=== PATIENT | male | born 1970 | race Two or more races ===

== ENCOUNTER 2017-10-30 10:37 | Inpatient (IN) ==
[2017-10-30] MEDS ORDERED: Aluminum/Magnesium/Simethacone Susp 30 ML UDC PO PRN (20:30)
[2017-10-31 10:30] LABS: Baso % (Auto) 0.5 % (0.0-2.0); Eos # (Auto) 0.2 th/mm3 (0.0-0.4); Eos % (Auto) 2.1 % (0.0-4.0); Hematocrit 41.8 % (39.0-51.0); Hemoglobin 14.5 gm/dL (13.0-17.0); Lymph # (Auto) 1.4 th/mm3 (1.0-4.8); Lymph % (Auto) 16.5 % (9.0-44.0); Mean Corpuscular HGB Conc 34.7 % (32.0-36.0); Mean Corpuscular Hemoglobin 32.5 pg (27.0-34.0); Mean Corpuscular Volume 93.7 fL (80.0-100.0); Mean Platelet Volume 7.5 fL (7.0-11.0); Mono # (Auto) 0.7 th/mm3 (0.0-0.9); Mono % (Auto) 8.6 % (0.0-8.0); Neut # (Auto) 6.2 th/mm3 (1.8-7.7); Neut % (Auto) 72.3 % (16.0-70.0); Platelet Count 306 th/mm3 (150-450); Red Blood Count 4.47 mil/mm3 (4.50-5.90); White Blood Count 8.5 th/mm3 (4.0-11.0)
[2017-10-31 11:01] LABS: Alanine Aminotransferase 11 U/L (12-78); Albumin 3.2 g/dL (3.4-5.0); Anion Gap 10 meq/L (5-15); Aspartate Aminotransferase 10 U/L (15-37); Blood Urea Nitrogen 5 mg/dL (7-18); Calcium 8.7 mg/dL (8.5-10.1); Chloride 106 meq/L (98-107); Cholesterol 156 mg/dL (120-200); Glomerular Filtration Rate Greater Than 89 mL/min (>89); Glucose,Random 99 mg/dL (74-106); Potassium 3.5 meq/L (3.5-5.1); Sodium 141 meq/L (136-145); Triglycerides 102 mg/dL (42-150)
[2017-10-31 11:10] LABS: Alkaline Phosphatase 91 U/L (45-117); HDL Cholesterol 50.3 mg/dL (40.0-60.0); LDL Cholesterol,Calculated 85 mg/dL (0-99); Total Protein 7.3 g/dL (6.4-8.2)
[2017-10-31 11:58] LABS: Hemoglobin A1c 4.8 % (4.3-6.0)
--- NOTE | 2017-10-31 12:30 | P.HPPSY ---
Provisional Diagnosis Admission Date: October 30, 2017 19:03 [place] I.: Unspecified psychosis, Catatonia, R/O schizophrenia, R/O bipolar disorder with catatonic features Competence Certification of Person's Competence To Provide Express and Informed Consent I have personally examined Rusty Haynes, a person being served at [facility] on, October 31, 2017 1211. Express and informed consent means consent voluntarily given in writing, by a competent person, after sufficient explanation and disclosure of the subject matter involved to enable the person to make a knowing and willful decision without any element of force, fraud, deceit, duress, or other form of constraint or coercion. This person is 18 years of age or older, is not now known to be incompetent to consent to treatment with a guardian advocate, and does not have a health care surrogate or proxy currently making medical treatment decisions. I have found this person to be one of the following: [] Competent to provide express and informed consent, as defined above, for voluntary admission to this facility and is competent to provide express and informed consent for treatment. He/she has the consistent capacity to make well reasoned, willful, and knowing decisions concerning his or her medical or mental health treatment. The person fully and consistently understands the purpose of the admission for examination/placement and is fully capable of personally exercising all rights assured [place] [x] Incompetent to provide express and informed consent to voluntary admission, and this is incompetent to provide express and informed consent to treatment. The person must be transferred to involuntary status and a petition for a guardian advocate filed with the Circuit Court. [] Refusing to provide express and informed consent to voluntary admission but is competent to provide express and informed consent for treatment. The person must be discharged or transferred to involuntary status. Form shall be completed within 24 hours of a person's arrival at the receiving facility and filed in the clinical record of each person: 1. Admitted on a voluntary basis 2. Permitted to provide express and informed consent to his/her own treatment 3. Allowed to transfer from involuntary to voluntary status 4. Prior to permitting a person to consent to his or her own treatment after having been previously found incompetent to consent to treatment. History of Present Illness Capacity: Lacks capacity History of Present Illness: The patient is a 47-year-old [place]iqu[place] man, [place]o-speaking, domiciled with his mother in the [place] area, first time at [facility], single, unemployed, with a reported psychiatric history of schizophrenia, multiple psychiatric admissions, known psychotropic regimen, no significant medical history, who was transferred to [place] from [facility] in [place] on the [place] act due to changes in behavior, increased agitation and altered mental status. Most of the information my assessment is based in the revision of the discharge summary from [facility]. Apparently, the patient was recently discharged from a psychiatric hospitalization in the [facility] and his medication were changed. There is no mention of medications and discharge summary. 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 Patient is also very sweaty. He was noted to be walking before in [facility]. Has not been interacting with staff, no answering questions, quite isolated. No agitation or aggressive behavior reported. The only questions of the patient responded to me was that he was from [place], he prefers [place], he does not know where he is, he is disoriented in time and place. Denies suicidal enemas ideation, denies visual and auditory hallucinations. PPHx Schizophrenia, multiple admissions, apparently he was just discharged from a lengthy hospitalization in a psychiatric hospital in the [facility], he denies suicidal attempts, with no psychotropic regimen. PPHx: No medical history Family psychiatric history: No at the moment Substance Hx: The patient denies, and he is negative and initial U tox Social Hx: The patient was born in [place], he lives in the [facility], single , employed, - Inpatient Certification I certify that the inpatient services were ordered in accordance with Medicare regulations governing the order. This includes certification that hospital inpatient services are reasonable and necessary and in the case of services not specified as inpatient-only under 42 CFR 419.22(n), that they are appropriately provided as inpatient services in accordance to with the 2-midnight benchmark under 43 CFR 412.3(e) I certify that inpatient psychiatric hospital services are medically necessary. Evaluation and treatment and/or diagnostic testing are expected to improve the patient's condition. The patient needs on a daily basis, active treatment furnished directly by or requiring the supervision of inpatient psychiatric facility personnel. Review of Systems Constitutional: Denies anorexia, Denies body ache(s), Denies chills, Denies daytime sleepiness, Denies excessive sweating, Denies fatigue, Denies fever(s), Denies headache(s), Denies increased appetite, Denies lack of energy, Denies malaise, Denies night sweats, Denies weakness, Denies weight gain, Denies weight loss, Denies other Ears, Nose, Mouth, and Throat: Denies abnormal hearing, Denies bleeding gums, Denies bad breath, Denies change in voice, Denies dental pain, Denies difficulty swallowing, Denies dizziness, Denies dry mouth, Denies ear discharge , Denies ear pain, Denies facial pain, Denies headache(s), Denies hearing loss, Denies hoarseness, Denies lip swelling, Denies nosebleed, Denies mouth lesions, Denies mouth pain, Denies nasal congestion, Denies nasal discharge, Denies nasal obstruction, Denies nasal trauma, Denies neck lump, Denies neck pain, Denies nose pain, Denies pain with swallowing, Denies poor balance, Denies post nasal drip, Denies ringing in the ears, Denies sinus pain, Denies sinus pressure , Denies sore throat, Denies throat swelling, Denies tongue swelling, Denies other Cardiovascular: Denies chest pain, Denies chest pain at rest, Denies chest pain with activity, Denies excessive sweating, Denies fainting, Denies fast heart rate, Denies foot swelling, Denies generalized swelling, Denies irregular heart rhythm, Denies leg pain with activity, Denies leg sores, Denies leg swelling, Denies lightheadedness, Denies radiating jaw, neck or arm pain, Denies rapid, pounding, or irregular heartbeat, Denies shortness of breath, Denies shortness of breath with activity, Denies shortness of breath when lying down, Denies shortness of breath causing sudden awakening, Denies slow heart rate, Denies other Respiratory: Denies change in phlegm color, Denies chest congestion, Denies cough, Denies coughing up blood, Denies excessive phlegm production, Denies pain on inspiration, Denies pain with cough, Denies shortness of breath, Denies shortness of breath with activity, Denies snoring, Denies stridor, Denies wheezing, Denies other Gastrointestinal: Denies abdominal pain, Denies belching, Denies black, tarry stools, Denies bloating, Denies bright, red blood in stools, Denies change in bowel habits, Denies constant urge to pass stool, Denies change in stools, Denies coffee ground vomit, Denies constipation, Denies cramping, Denies difficulty swallowing, Denies excessive passing of gas, Denies feeling full early, Denies heartburn, Denies incontinent of stools, Denies loose stools, Denies nausea, Denies pain with swallowing, Denies vomiting, Denies vomiting blood, Denies other Neurologic: Reports confusion, Reports weakness Comments: Waxy flexibility, bilateral upper extremity stiffness, flat affect, selective mutism, psychomotor retardation. PMFSH - History History Provided By: Patient, Medical Record - Tobacco History Second Hand Smoke Exposure: No Tobacco Use In Past 30 Days: No Smoking Status: Never smoker Tobacco Type: Cigarettes - Alcohol History How Often Do You Have a Drink Containing Alcohol: Never - Substance Use History Substance History: No History of Abuse - Travel History Recent Travel in the [place] Within the Last 8 Weeks: No Recent Travel Out of the Country Within the Last 8 Weeks: No - Immunization History Tetanus Immunization: >5 Years Hx Influenza Vaccine This Season: Yes Medications and Allergies Active Medications: Active Medications Acetaminophen (Tylenol) 650 mg PO Q4H PRN PRN Reason: Pain 1-5 or Temp >101F Al Hydrox/Mg Hydrox/Simethicone (Mag-Al Plus Susp Liq) 30 ml PO Q6H PRN PRN Reason: DYSPEPSIA Al Hydroxide/Mg Hydroxide (Milk Of Magnesia Liq) 30 ml PO DAILY PRN PRN Reason: CONSTIPATION Diphenhydramine HCl (Benadryl) 50 mg PO Q6H PRN PRN Reason: For mild anxiety and/or EPS Lorazepam (Ativan Inj) 2 mg IM Q4H PRN PRN Reason: SEIZURES Nicotine (Habitrol 21 Mg Patch.24 Hr) 1 patch T-DERMAL DAILY PRN PRN Reason: NICOTINE CRAVING Patch Removal (Remove Old Patch) 1 each T-DERMAL HS PRN PRN Reason: IF NICOTINE PATCH ON Allergies Allergy/AdvReac Type Severity Reaction Status Date / Time haloperidol [From Haldol] AdvReac Severe Difficulty Verified 10/31/17 06:17 Breathing Results - Labs CBC & Chem 7: 10/31/17 09:49 10/31/17 09:49 Labs: Laboratory Results - last 24 hr 10/31/17 10/31/17 09:49 09:49 WBC 8.5 RBC 4.47 L Hgb 14.5 Hct 41.8 MCV 93.7 MCH 32.5 MCHC 34.7 RDW 13.0 Plt Count 306 MPV 7.5 Neut % (Auto) 72.3 H Lymph % (Auto) 16.5 [place] % (Auto) 8.6 H Eos % (Auto) 2.1 Baso % (Auto) 0.5 Neut # (Auto) 6.2 Lymph # (Auto) 1.4 [place] # (Auto) 0.7 Eos # (Auto) 0.2 Baso # (Auto) 0.0 WBC Differential . Differential Comment Auto diff final Sodium 141 Potassium 3.5 Chloride 106 Carbon Dioxide 25.0 Anion Gap 10 BUN 5 L Creatinine 0.53 L Estimated GFR Greater than 89 Random Glucose 99 Calcium 8.7 Total Bilirubin 0.4 AST 10 L ALT 11 L Alkaline Phosphatase 91 Total Protein 7.3 Albumin 3.2 L Triglycerides 102 Cholesterol 156 LDL Cholesterol, Calc 85 HDL Cholesterol 50.3 Cholesterol/HDL Ratio 3.10 TSH 1.510 Exam Vital signs: Vital Signs 10/30/17 19:05 10/31/17 06:31 Temperature 98.8 F 98.4 F Pulse Rate 98 H 112 H Respiratory Rate 20 Blood Pressure 121/79 120/57 L Pulse Oximetry 98 Intake & Output 10/30/17 10/31/17 10/31/17 18:59 06:59 18:59 Weight 83.914 kg Other: Weight On Admission 83.914 kg Narrative: Patient has prominent psychomotor retardation, bilateral upper extremity stiffness, slow movements, waxy flexibility, walking and tiptoe, sweating - Constitutional moderate distress, diaphoretic - Routine HEENT Exam Head: Present: normocephalic Eye: Present: EOMI ENT: Present: mucous membranes moist Mental Status Examination Appearance: Appropriate Consciousness: Lethargic, Clouded Orientation: Person, Date/Time Speech: Slow, Other (Selective mutism) Language: Adequate Fund of Knowledge: Inadequate Attention and Concentration: Inadequate Memory: Impaired Mood: Sad Affect: Flat Thought Process & Associations: Other (Severe blocking thought) Thought Content: Bizarre thinking Hallucination Type: None Delusion Type: Paranoid Suicidal Ideation: No Suicidal Plan: No Suicidal Intention: No Homicidal Ideation: No Homicidal Plan: No Homicidal Intention: No Insight: Poor Judgment: Poor Assessment and Plan - Assessment (1) Catatonia Code(s): F06.1 - Catatonic disorder due to known physiological condition Status: Acute (2) Schizophrenia Code(s): F20.9 - Schizophrenia, unspecified Status: Acute - Plan Plan: Estimated LOS: [] days On my psychiatric evaluation today I find a patient that presents quite stiff, stuporous, psychomotor retarded, with prominent flat affect, selective mutism, delay speech, blocking thought, upper extremity bilateral stiffness, waxy flexibility, he has been reported being weakness walking and tiptoe which might suggest that the patient is acutely catatonic. I have order Ativan 2 mg IM and after 15 minute the patient has showed a significant improvement in this symptomatology, but he continues to be disorganized, cannot confused and paranoid which is congruent with a concomitant major psychotic process decompensation. However, we did not have enough information about this patient to complete the diagnosis at this moment. As per discharge summary from [facility] the patient has history of schizophrenia, multiple psychiatric hospitalizations, he was recently discharged from a lengthy hospitalization in the [facility], but there is no information about his current psychotropic regimen, mental status, and psychiatric history in general. Obviously, in this case a medical reason for current presentation is important to be explore, especially a potential NMS. I will start Ativan 1 mg p.o. every 2 hours. Try to continue to get collateral information from family members. No antipsychotics at this moment. Will consult medicine. Agree with consulting neurology. Will order CBC, CMP, urine test, TSH, T3, T4, CPK. Justification for Continued Inpatient Stay: Continue admission.
--- NOTE | 2017-10-31 12:44 | P.CONNEU ---
History of Present Illness Service: Neurology Primary Care Provider: No Primary Care Physician Chief Complaint: Seizure History of Present Illness: 47-year-old male admitted for psychiatric illness to the psych unit. Apparently was in [place] prior. Poor historian. No medical records available. Some questionable history of seizure. Was given Ativan for possible catatonia as he was mute and nurse states he has been more conversant since then. Review of Systems All other systems reviewed negative except as stated in HPI [facility] - History History Provided By: Patient, Medical Record - Medical History Medical History: Medical History (Last Updated 10/31/17 @ 13:27 by Kitty Escoto MD) Epilepsy - Tobacco History Second Hand Smoke Exposure: No Tobacco Use In Past 30 Days: No Smoking Status: Never smoker Tobacco Type: Cigarettes - Alcohol History How Often Do You Have a Drink Containing Alcohol: Never - Substance Use History Substance History: No History of Abuse - Travel History Recent Travel in the [facility] Within the Last 8 Weeks: No Recent Travel Out of the Country Within the Last 8 Weeks: No - Immunization History Tetanus Immunization: >5 Years Hx Influenza Vaccine This Season: Yes Medications and Allergies Active Medications: Active Medications Acetaminophen (Tylenol) 650 mg PO Q4H PRN PRN Reason: Pain 1-5 or Temp >101F Al Hydrox/Mg Hydrox/Simethicone (Mag-Al Plus Susp Liq) 30 ml PO Q6H PRN PRN Reason: DYSPEPSIA Al Hydroxide/Mg Hydroxide (Milk Of Magnesia Liq) 30 ml PO DAILY PRN PRN Reason: CONSTIPATION Diphenhydramine HCl (Benadryl) 50 mg PO Q6H PRN PRN Reason: For mild anxiety and/or EPS Lorazepam (Ativan Inj) 2 mg IM Q4H PRN PRN Reason: SEIZURES Lorazepam (Ativan) 1 mg PO Q8H DEBORAH Nicotine (Habitrol 21 Mg Patch.24 Hr) 1 patch T-DERMAL DAILY PRN PRN Reason: NICOTINE CRAVING Patch Removal (Remove Old Patch) 1 each T-DERMAL HS PRN PRN Reason: IF NICOTINE PATCH ON Allergies Allergy/AdvReac Type Severity Reaction Status Date / Time haloperidol [From Haldol] AdvReac Severe Difficulty Verified 10/31/17 06:17 Breathing Exam Vital signs: Vital Signs 10/30/17 19:05 10/31/17 06:31 Temperature 98.8 F 98.4 F Pulse Rate 98 H 112 H Respiratory Rate 20 Blood Pressure 121/79 120/57 L Pulse Oximetry 98 Intake & Output 10/30/17 10/31/17 10/31/17 18:59 06:59 18:59 Weight 83.914 kg Other: Weight On Admission 83.914 kg Narrative: Awake alert in a wheelchair being wheeled around by the patient's me of not conversant no obvious distress no facial asymmetry as blink to threat appears to move all limbs - Constitutional no acute distress - Routine HEENT Exam Head: Present: normocephalic Results - Labs CBC & Chem 7: 10/31/17 09:49 10/31/17 09:49 Labs: Laboratory Results - last 24 hr 10/31/17 10/31/17 09:49 09:49 WBC 8.5 RBC 4.47 L Hgb 14.5 Hct 41.8 MCV 93.7 MCH 32.5 MCHC 34.7 RDW 13.0 Plt Count 306 MPV 7.5 Neut % (Auto) 72.3 H Lymph % (Auto) 16.5 [place] % (Auto) 8.6 H Eos % (Auto) 2.1 Baso % (Auto) 0.5 Neut # (Auto) 6.2 Lymph # (Auto) 1.4 [place] # (Auto) 0.7 Eos # (Auto) 0.2 Baso # (Auto) 0.0 WBC Differential . Differential Comment Auto diff final Sodium 141 Potassium 3.5 Chloride 106 Carbon Dioxide 25.0 Anion Gap 10 BUN 5 L Creatinine 0.53 L Estimated GFR Greater than 89 Random Glucose 99 Calcium 8.7 Total Bilirubin 0.4 AST 10 L ALT 11 L Alkaline Phosphatase 91 Total Protein 7.3 Albumin 3.2 L Triglycerides 102 Cholesterol 156 LDL Cholesterol, Calc 85 HDL Cholesterol 50.3 Cholesterol/HDL Ratio 3.10 TSH 1.510 Review/Management - Diagnosis (1) Catatonia Code(s): F06.1 - Catatonic disorder due to known physiological condition Status: Acute Current Visit: Yes (2) Schizophrenia Code(s): F20.9 - Schizophrenia, unspecified Status: Acute Current Visit: Yes - Review/Management Plan: Vitals appear stable at present May have been in a catatonic state Additional medical history would be helpful Recommendations Follow-up EEG, imaging Follow-up labs
--- NOTE | 2017-10-31 13:49 | P.CONIM ---
History of Present Illness Service: Hospitalist Consult date: 10/31/17 Requesting Physician: Stanley Yusuf Reason for Consult: Tachycardia, stiffiness, r/o NMS Primary Care Provider: No Primary Care Physician History of Present Illness: 47 year old [place]ian male with reported history of epilepsy and schizophrenia admitted under [place] Act from [facility] for increased agitation and change in mental status. Patient is a poor historian but per his admission HPI, he recently had a lengthy psychiatric hospitalization in the [place] area and had been discharged but there is no mention of any medications on his discharge summary. On his initial presentation, the patient was noted to be "quite stuporous, oppositional, seems to be selectively mute, with prominent flat affect, psychomotor retarded, delay speech, blocking thought, inability to move, stiffness and waxy flexibility." He was also noted to be diaphoretic and tiptoe walking. The patient was administered Ativan IM with improvement. Hospitalist services consulted for evaluation of tachycardia, diaphoresis, stiffness, and to rule out neuroleptic malignant syndrome. Neurology has also been consulted. On my encounter with the patient, he is initially seen in the hallway talking on the telephone. When brought to his room he is calm and conversive though most of the time he speaks of his family in [place] and repeatedly states "I am not from here." He cannot tell me about his recent hospitalization but endorses some altercation with police enforcement yesterday as he complains of some tenderness in his wrists from the "handcuffs." He states he has a history of epilepsy for which he reports taking Trileptal but does not elaborate on any psychiatric history. He admits to having auditory hallucinations; denies visual hallucinations or suicidal ideations. He endorses a little bit of discomfort in his left chest. Denies palpitations or racing heart. Review of Systems All other systems reviewed negative except as stated in HPI PMFSH - History History Provided By: Patient, Medical Record - Medical History Medical History: Medical History (Last Updated 10/31/17 @ 13:27 by Kitty Escoto MD) Epilepsy - Tobacco History Second Hand Smoke Exposure: No Tobacco Use In Past 30 Days: No Smoking Status: Never smoker Tobacco Type: Cigarettes - Alcohol History How Often Do You Have a Drink Containing Alcohol: Never - Substance Use History Substance History: No History of Abuse - Travel History Recent Travel in the [place] Within the Last 8 Weeks: No Recent Travel Out of the Country Within the Last 8 Weeks: No - Immunization History Tetanus Immunization: >5 Years Hx Influenza Vaccine This Season: Yes Medications and Allergies Active Medications: Active Medications Acetaminophen (Tylenol) 650 mg PO Q4H PRN PRN Reason: Pain 1-5 or Temp >101F Al Hydrox/Mg Hydrox/Simethicone (Mag-Al Plus Susp Liq) 30 ml PO Q6H PRN PRN Reason: DYSPEPSIA Al Hydroxide/Mg Hydroxide (Milk Of Magnesia Liq) 30 ml PO DAILY PRN PRN Reason: CONSTIPATION Diphenhydramine HCl (Benadryl) 50 mg PO Q6H PRN PRN Reason: For mild anxiety and/or EPS Lorazepam (Ativan Inj) 2 mg IM Q4H PRN PRN Reason: SEIZURES Lorazepam (Ativan) 1 mg PO Q8H DEBORAH Nicotine (Habitrol 21 Mg Patch.24 Hr) 1 patch T-DERMAL DAILY PRN PRN Reason: NICOTINE CRAVING Patch Removal (Remove Old Patch) 1 each T-DERMAL HS PRN PRN Reason: IF NICOTINE PATCH ON Allergies Allergy/AdvReac Type Severity Reaction Status Date / Time haloperidol [From Haldol] AdvReac Severe Difficulty Verified 10/31/17 06:17 Breathing Exam Vital signs: Vital Signs 10/30/17 19:05 10/31/17 06:31 Temperature 98.8 F 98.4 F Pulse Rate 98 H 112 H Respiratory Rate 20 Blood Pressure 121/79 120/57 L Pulse Oximetry 98 Intake & Output 10/30/17 10/31/17 10/31/17 18:59 06:59 18:59 Weight 83.914 kg Other: Weight On Admission 83.914 kg Narrative: GENERAL: WN, WD, cooperative [place]ian male sitting up in chair in NAD. SKIN: Warm and dry. Not diaphoretic. HEENT: AT/NC. Pupils equal and round. MMM. NECK: Supple no tender LAD or JVD. HEART: Tachycardic with no appreciable murmurs. LUNGS: CTAB without wheezes or crackles. ABDOMEN: +BS, soft, NT, ND. EXTREMITIES: No LE edema. Post-surgical scar R anterior leg just distal to his knee and L upper calf. NEURO: Awake and alert. Oriented to person and time though after he answers that the year is 2017 he states "it could also be 2021." Does not know what city he's in or where he is. Moving all extremities. There is some stiffness and rigidity when I passively move his arms but it improves when I encourage him to relax. No tremors. Follows commands. Strength 4/5 bilaterally. No focal neurologic deficits. Results - Labs CBC & Chem 7: 10/31/17 09:49 10/31/17 09:49 Labs: Laboratory Results - last 24 hr 10/31/17 10/31/17 09:49 09:49 WBC 8.5 RBC 4.47 L Hgb 14.5 Hct 41.8 MCV 93.7 MCH 32.5 MCHC 34.7 RDW 13.0 Plt Count 306 MPV 7.5 Neut % (Auto) 72.3 H Lymph % (Auto) 16.5 Mathews % (Auto) 8.6 H Eos % (Auto) 2.1 Baso % (Auto) 0.5 Neut # (Auto) 6.2 Lymph # (Auto) 1.4 Mathews # (Auto) 0.7 Eos # (Auto) 0.2 Baso # (Auto) 0.0 WBC Differential . Differential Comment Auto diff final Sodium 141 Potassium 3.5 Chloride 106 Carbon Dioxide 25.0 Anion Gap 10 BUN 5 L Creatinine 0.53 L Estimated GFR Greater than 89 Random Glucose 99 Calcium 8.7 Total Bilirubin 0.4 AST 10 L ALT 11 L Alkaline Phosphatase 91 Total Protein 7.3 Albumin 3.2 L Triglycerides 102 Cholesterol 156 LDL Cholesterol, Calc 85 HDL Cholesterol 50.3 Cholesterol/HDL Ratio 3.10 TSH 1.510 Assessment and Plan - Assessment (1) Psychosis Code(s): F29 - Unspecified psychosis not due to a substance or known physiological condition Status: Acute (2) Tachycardia Code(s): R00.0 - Tachycardia, unspecified Status: Acute (3) Catatonia Code(s): F06.1 - Catatonic disorder due to known physiological condition Status: Acute - Plan Impression: 47 year old [place]ian male with history of seizures and schizophrenia admitted under [place] Act for agitation and change in mental status. Patient noted to be tachycardic, diaphoretic, and stiff with no information regarding his medications he has been taking. Hospitalist service consulted for further evaluation, specifically to rule out neuroleptic malignant syndrome. After receiving IM Ativan, he no longer appears to have the same catatonic picture as described by psychiatry. He is not significantly rigid or stiff now is he diaphoretic on my exam. He is afebrile and aside from tachycardia his vitals signs are stable. His CBC, CMP, and TSH are grossly normal. Differentials include malignant catatonia, NMS, serotonin syndrome, infection, withdrawal, overdose, etc. Unfortunately, we do not know what if any medications he has been taking. Plan: - Recommend trying to obtain records from recent hospitalization to see what medications he was taking - Agree with neuro consult; EEG and MRI ordered - Hold antipsychotics for now given concern for NMS or others as above - Ativan per psych to control catatonia - Check EKG, troponin, UDS, U/A, CK - Other labs ordered by neuro: ammonia, CRP, ESR, B12 - Monitor vitals - Monitor clinically Thank you for this consultation. Will continue to follow along.
[2017-10-31 14:45] LABS: Creatine Kinase 112 U/L (39-308)
[2017-10-31 14:52] LABS: C-Reactive Protein 0.52 mg/dL (0.00-0.30)
[2017-10-31] MEDS: LORazepam 1 MG Tablet PO SCH (21:18)
[2017-11-01] MEDS: LORazepam 1 MG Tablet PO SCH ×4 (09:04→20:44)
--- NOTE | 2017-11-01 10:45 | MR ---
EXAM DATE: 11/01/2017 10:33 AM EDT AGE/SEX: 47 years / Male INDICATIONS: Altered mental status. CLINICAL DATA: This is the patient's initial encounter. Patient reports that signs and symptoms have been present for 3 days and indicates a pain score of 0/10. MEDICAL/SURGICAL HISTORY: . Epilepsy. None. COMPARISON: No prior exams available for comparison. TECHNIQUE: Multiplanar, multisequence examination of the brain was performed without contrast. FINDINGS: Exam is degraded by motion. Cerebrum: The ventricles are normal for age. No evidence of midline shift, mass lesion, hemorrhage or acute infarction. No extraaxial fluid collections are seen. The pituitary gland and suprasellar cistern are normal in configuration. White Matter: No significant signal abnormalities are seen in the white matter. Posterior Fossa: The cerebellum and brainstem are intact. The 4th ventricle is midline. The cerebel lopontine angle is unremarkable. The cerebellar tonsils are normal in position. Diffusion Imaging: No focal areas of restricted diffusion are seen. No evidence of acute infarction . Extracranial: The visualized portions of the orbits and paranasal sinuses are unremarkable. CONCLUSION: 1. Motion degraded exam. 2. No definitive acute abnormality. Specifically, no evidence for acute infarction or hemorrhage. Electronically signed by: Ehsan Bernard MD 11/01/2017 10:44 AM EDT
--- NOTE | 2017-11-01 13:10 | P.PNPSY ---
Subjective Remarks: Patient was seen and case discussed with nursing. Patient is less catatonic today. He is able to hold a conversation. He is more talkative in Estonian. He does remained flat with thought blocking. He is able to eat by himself. During our interview patient expressed suicidal ideation. Patient says that if he could find a way to hurt himself here he would do so today. Stressors include being poor and feeling helpless. Patient admits to "some voices." Mental Status Examination Appearance: Appropriate Consciousness: Lethargic, Clouded Orientation: Person, Place, Date/Time Speech: Slow, Other (Selective mutism) Language: Adequate Fund of Knowledge: Inadequate Attention and Concentration: Inadequate Memory: Impaired Mood: Sad Affect: Flat Thought Process & Associations: Other (Severe blocking thought) Thought Content: Bizarre thinking Hallucination Type: None Delusion Type: Paranoid Suicidal Ideation: Yes Suicidal Plan: No Suicidal Intention: Yes Homicidal Ideation: No Homicidal Plan: No Homicidal Intention: No Insight: Poor Judgment: Poor Assessment and Plan - Assessment (1) Catatonia Code(s): F06.1 - Catatonic disorder due to known physiological condition Status: Acute (2) Schizophrenia Code(s): F20.9 - Schizophrenia, unspecified Status: Acute - Plan Plan: We will order one-to-one Justification for Continued Inpatient Stay: Patient would decompensate in a less restrictive setting
--- NOTE | 2017-11-01 13:14 | ECG ---
Date Performed: 10/31/2017 Time Performed: 14:51:19 PTAGE: 47 years EKG: Sinus rhythm NORMAL ECG NO PREVIOUS TRACING DOCTOR: Delroy Dwyer Interpretating Date/Time 11/01/2017 13:10:36
--- NOTE | 2017-11-01 17:19 | P.PN ---
Subjective Interval history: follow up for AMS, agitation, tachycardia: pt. back from EEG, per nursing he has been talking a little more. Sometimes he speaks in Romansh. Spoke to him in both languages but I get no response initially, as I walk away he said a few words that were difficult to understand and he would not speak again. Not following command. HR improved, 90s. No diaphoresis. He walks on tiptoes, gait is unsteady per nursing report. No rigidity noted. Has received Ativan. Per review of medical records: pt. was on Tegretol, Benadryl, melatonin, Risperdal, Depakote, benztropine, simvastatin, folic acid Depakote level 45.9 10/29 Physical Exam Vital signs: Vital Signs 10/31/17 18:51 11/01/17 06:53 Temperature 98.7 F 98.0 F Pulse Rate 101 H 94 H Respiratory Rate 17 18 Blood Pressure 107/56 L 102/57 L Pulse Oximetry 99 96 Narrative: GENERAL: 47-year-old male, currently sitting in chair, flat affect. No distress noted. SKIN: Warm and dry. HEAD: Atraumatic. Normocephalic. EYES: Pupils equal and round. No scleral icterus. No injection or drainage. ENT: No nasal bleeding or discharge. Mucous membranes pink and moist. NECK: Trachea midline. No JVD. CARDIOVASCULAR: Regular rate and rhythm. RESPIRATORY: No accessory muscle use. Clear to auscultation. Breath sounds equal bilaterally. GASTROINTESTINAL: Abdomen soft, non-tender, nondistended. Hepatic and splenic margins not palpable. MUSCULOSKELETAL: Extremities without clubbing, cyanosis, or edema. No obvious deformities. NEUROLOGICAL: Patient is awake, has flat affect, not verbalizing much. Difficult to ascertain orientation. Not following commands. PSYCHIATRIC: Flat affect, nonverbal. Results - Labs CBC & Chem 7: 10/31/17 09:49 10/31/17 09:49 - Imaging Impressions Head MRI 11/01/17 00:00 CONCLUSION: 1. Motion degraded exam. 2. No definitive acute abnormality. Specifically, no evidence for acute infarction or hemorrhage. Assessment and Plan - Assessment (1) Psychosis Code(s): F29 - Unspecified psychosis not due to a substance or known physiological condition Status: Acute (2) Tachycardia Code(s): R00.0 - Tachycardia, unspecified Status: Acute (3) Catatonia Code(s): F06.1 - Catatonic disorder due to known physiological condition Status: Acute (4) Seizure disorder Code(s): G40.909 - Epilepsy, unspecified, not intractable, without status epilepticus Status: Acute - Plan 47 year old [place] male with history of seizures and schizophrenia admitted under Kebede Act for agitation and change in mental status. Patient noted to be tachycardic, diaphoretic, and stiff. AMS with agitation r/o NMS, serotonin syndrome, ? withdrawal. Hx of psychosis Catatonia Labs normal. Limited records are available for review. Medication list noted. Pt. was receiving PT for mobility and unstable gait. Heart improved, no fever, no diaphoresis. -continue with Ativan -Neurology input appreciated -MRI brain results noted, no acute findings -EEG done, results pending -Medication list is reviewed, pt. was on Tegretol, Benadryl, melatonin, Risperdal, Depakote, benztropine, simvastatin, folic acid, Pepcid, Tylenol, Thiamine Depakote level 45.9 on 10/29 -at this time, continue to hold medications. -labs reviewed, CRP and ammonia mildly elevated. -trop and creat kinase okay Seizure disorder, pt. on Tegretol, level 45.9 on 10/29 -will hold for now -EEG done, results pending -seizure precautions Hyperlipidemia -resume home meds Home medications reviewed, some initiated. Will continue to hold antipsychotics Plan of care d/w RAIZA.
[2017-11-01] MEDS: Nystatin 100,000 UNITS/GM Powder 15 GM Bottle TOPICAL SCH (18:51)
--- NOTE | 2017-11-01 21:47 | MG ---
cc: Francesco Melton MD ELECTROENCEPHALOGRAM RECORD NUMBER: [id number] DESCRIPTION: Well-formed 8-9 Hz alpha activity, 20-40 microvolts with low-amplitude beta in the frontal channels, followed by generalized slowing with transition into drowsy state, followed by stage I sleep with vertex waves. Spindles with transition to stage II. Occasional episodes of wakefulness. Limited driving with photic stimulation. Single-lead EKG showing sinus rhythm. INTERPRETATION: Normal awake and sleep electroencephalogram. Clinical correlation. MD ANNIKA Harden/jadyn , 09:11 PM , 09:15 PM
[2017-11-02] MEDS: LORazepam 1 MG Tablet PO SCH (06:02)
[2017-11-02] MEDS: Famotidine 20 MG Tablet PO SCH (08:41)
[2017-11-02] MEDS: Folic Acid 1 MG Tablet PO SCH (08:41)
[2017-11-02] MEDS: Nystatin 100,000 UNITS/GM Powder 15 GM Bottle TOPICAL SCH ×4 (08:46→17:53)
--- NOTE | 2017-11-02 12:41 | P.PNPSY ---
Subjective Remarks: The patient was seen today along with nurse in charge. The patient continues to be quite catatonic, with marked psychomotor retardation, with mutism and delay speech, oppositional behavior, stiff and flat affect. The patient has not been moving in the unit, mostly sat down, eating less than 30% of his food. He was described by weekend psychiatrist as talking and expressing suicidal ideation, but today he barely answer my questions. I have reviewed neurology and internal medicine recommendations. Mental Status Examination Appearance: Appropriate Consciousness: Lethargic, Clouded Orientation: Person, Place, Date/Time Speech: Slow, Other (Selective mutism) Language: Adequate Fund of Knowledge: Inadequate Attention and Concentration: Inadequate Memory: Impaired Mood: Sad Affect: Flat Thought Process & Associations: Other (Severe blocking thought) Thought Content: Bizarre thinking Hallucination Type: None Delusion Type: Paranoid Suicidal Ideation: Yes Suicidal Plan: No Suicidal Intention: Yes Homicidal Ideation: No Homicidal Plan: No Homicidal Intention: No Insight: Poor Judgment: Poor Assessment and Plan - Assessment (1) Catatonia Code(s): F06.1 - Catatonic disorder due to known physiological condition Status: Acute (2) Schizophrenia Code(s): F20.9 - Schizophrenia, unspecified Status: Acute - Plan Plan: The patient remains catatonic. With prominent flat affect, psychomotor retardation, mutism, oppositional behavior, eating less than 30% of his food. Will change the Ativan 1 mg p.o. to Ativan 2 mg IM every 8 hours. If patient does not show improvement with Ativan, the patient may be a candidate for the Med[facility] unit. Collateral information is still pending. Justification for Continued Inpatient Stay: Acuity catatonic, psychotic, needs psychiatric hospitalization for stabilization.
--- NOTE | 2017-11-02 17:14 | P.PN ---
Subjective Interval history: follow up for AMS, agitation, tachycardia: pt was moved to [address], was given Ativan IM. This morning, having difficulty swallowing pill. At this time, he is sitting up in chair, talking, slow to respond but knows he is in a hospital, name of president. Thinks his parents are in the room down the hallway. Denies any pain when asked. Feels weak. Still with flat affect, not as stiff as he was yesterday. Following simple commands. Physical Exam Vital signs: Vital Signs 11/01/17 17:05 11/02/17 06:19 Temperature 98.6 F Pulse Rate 92 H 93 H Respiratory Rate 18 16 Blood Pressure 123/75 101/63 Pulse Oximetry 97 100 Intake & Output 11/01/17 11/02/17 11/02/17 18:59 06:59 18:59 Weight 80 kg Narrative: GENERAL: 47-year-old male, currently sitting in chair, flat affect. No distress noted. SKIN: Warm and dry. HEAD: Atraumatic. Normocephalic. EYES: Pupils equal and round. No scleral icterus. No injection or drainage. ENT: No nasal bleeding or discharge. Mucous membranes pink and moist. NECK: Trachea midline. No JVD. CARDIOVASCULAR: Regular rate and rhythm. RESPIRATORY: No accessory muscle use. Clear to auscultation. Breath sounds equal bilaterally. GASTROINTESTINAL: Abdomen soft, non-tender, nondistended. Hepatic and splenic margins not palpable. MUSCULOSKELETAL: Extremities without clubbing, cyanosis, or edema. No obvious deformities. NEUROLOGICAL: awake, slow to respond, speech clear. Oriented to place, knows name of president. PSYCHIATRIC: Flat affect, nonverbal. Results - Labs CBC & Chem 7: 10/31/17 09:49 10/31/17 09:49 Assessment and Plan - Assessment (1) Psychosis Code(s): F29 - Unspecified psychosis not due to a substance or known physiological condition Status: Acute (2) Tachycardia Code(s): R00.0 - Tachycardia, unspecified Status: Acute (3) Catatonia Code(s): F06.1 - Catatonic disorder due to known physiological condition Status: Acute (4) Seizure disorder Code(s): G40.909 - Epilepsy, unspecified, not intractable, without status epilepticus Status: Acute - Plan 47 year old [place]ian male with history of seizures and schizophrenia admitted under K[place] Act for agitation and change in mental status. Patient noted to be tachycardic, diaphoretic, and stiff. AMS with agitation r/o NMS, serotonin syndrome, ? withdrawal. Hx of psychosis Catatonia Labs normal. Limited records are available for review. Medication list noted. Pt. was receiving PT for mobility and unstable gait. Heart improved, no fever, no diaphoresis. -continue with Ativan, seems to be responding well. -Neurology input appreciated -MRI brain results noted, no acute findings -EEG done no acute findings. -Medication list is reviewed, pt. was on Tegretol, Benadryl, melatonin, Risperdal, Depakote, benztropine, simvastatin, folic acid, Pepcid, Tylenol, Thiamine Depakote level 45.9 on 10/29 -at this time, continue to hold medications. -labs reviewed, CRP and ammonia mildly elevated. -trop and creat kinase okay Seizure disorder, pt. on Tegretol, level 45.9 on 10/29 -will hold for now -EEG okay -seizure precautions Hyperlipidemia -continue home meds Right arm rash -continue Nystatin Noted with trouble swallowing -will obtain swallow eval. Home medications reviewed, some initiated. Will continue to hold antipsychotics Plan of care d/w RAIZA.
[2017-11-03] MEDS: Nystatin 100,000 UNITS/GM Powder 15 GM Bottle TOPICAL SCH ×3 (09:29→18:12)
[2017-11-03] MEDS: Folic Acid 1 MG Tablet PO SCH ×2 (09:29→09:49)
[2017-11-03] MEDS: Famotidine 20 MG Tablet PO SCH ×2 (09:31→09:50)
--- NOTE | 2017-11-03 12:07 | P.PN ---
Subjective Interval history: Follow-up on patient with possible history of seizure disorder, altered mental status, increased agitation. Patient seen and examined. Patient is very talkative today but remains a very poor historian. He is fixated on returning home to [place]. He repeatedly states he believes he needs to go back to his country. He believes staying here is making him worse. He believes that his last seizure was 3 days ago. He states he has been on Tegretol since he was a child for epilepsy. He tells me he believes in [place]. Discussed with nursing staff, patient ate about 75% of breakfast but not much of lunch. Physical Exam Vital signs: Vital Signs 11/02/17 17:41 11/03/17 05:48 Temperature 98.1 F 98.5 F Pulse Rate 86 Respiratory Rate 16 Blood Pressure 100/57 L Pulse Oximetry 98 Intake & Output 11/02/17 11/03/17 11/03/17 18:59 06:59 18:59 Intake Total 240 / 240 240 / 240 Balance 240 / 240 240 / 240 Intake: Oral 240 / 240 240 / 240 Narrative: GENERAL: This is a thin 47-year-old male patient, no acute distress. Awake and alert. SKIN: Warm and dry. No generalized rash. HEENT: Atraumatic. Normocephalic. Pupils equal and round. No scleral icterus. No injection or drainage. No nasal bleeding or discharge. Mucous membranes pink and moist. NECK: Trachea midline. CARDIOVASCULAR: Regular rate and rhythm. RESPIRATORY: No accessory muscle use. Clear to auscultation. Breath sounds equal bilaterally. GASTROINTESTINAL: Abdomen soft, non-tender, nondistended. +BS x 4 quads. MUSCULOSKELETAL: Extremities without clubbing, cyanosis, or edema. No obvious deformities. NEUROLOGICAL: Awake and alert. Talkative. Cranial nerves II through XII grossly intact. Able to move all extremities spontaneously. No focal neurologic finding. Normal speech. PSYCHIATRIC: Calm and cooperative. Judgment and insight poor. Results - Labs CBC & Chem 7: 10/31/17 09:49 10/31/17 09:49 - Imaging ITS Impressions Head MRI 11/01/17 00:00 CONCLUSION: 1. Motion degraded exam. 2. No definitive acute abnormality. Specifically, no evidence for acute infarction or hemorrhage. 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 Patient noted to be tachycardic, diaphoretic, and stiff. Schizophrenia Catatonia [facility] acted from [facility] for increased agitation/altered mental status -Management per psychiatric team AMS with agitation r/o NMS, serotonin syndrome, ?withdrawal. Hx of psychosis Medication list is reviewed, pt. was on Tegretol, Benadryl, melatonin, Risperdal , Depakote, benztropine, simvastatin, folic acid, Pepcid, Tylenol, Thiamine Depakote level 45.9 on 10/29 MRI brain, no acute finding -Neurology input appreciated Seizure disorder, pt. on Tegretol, level 45.9 on 10/29 EEG, no seizure activity -seizure precautions Hyperlipidemia -continue home meds Right arm rash -continue Nystatin Noted with trouble swallowing Poor po intake -Swallow evaluation completed, per ST recommendations regular diet with thin liquids -Consult dietitian for calorie count. Will add supplements 3 times a day. Discussed Condition With: patient, nursing staff
--- NOTE | 2017-11-03 12:59 | P.PNPSY ---
Subjective Remarks: Patient was seen today for psychiatric reevaluation. Case was widely discussed with nursing charge. The patient is found very catatonic, in bed, very stiff, with pronounced mutism, flat affect, waxy flexibility. In spite of multiple efforts to communicate with the patient, the patient verbally respond. As per nurse in charge, the patient has moments of being better right after getting IV Ativan, but he usually goes back to catatonic state minutes later. This morning the patient ate 75% of his food. Yesterday, the patient expressed that he wanted to and commit suicide. No one has been able to communicate with family members so far. Mental Status Examination Appearance: Appropriate Consciousness: Lethargic, Clouded Orientation: Person, Place, Date/Time Speech: Slow, Other (Selective mutism) Language: Adequate Fund of Knowledge: Inadequate Attention and Concentration: Inadequate Memory: Impaired Mood: Sad Affect: Flat Thought Process & Associations: Other (Severe blocking thought) Thought Content: Bizarre thinking Hallucination Type: None Delusion Type: Paranoid Suicidal Ideation: Yes Suicidal Plan: No Suicidal Intention: Yes Homicidal Ideation: No Homicidal Plan: No Homicidal Intention: No Insight: Poor Judgment: Poor Assessment and Plan - Assessment (1) 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 Very poor response to psychotropics so far. We do not have any collateral information, we need to continue trying to get collateral information from his family in order to get the complete psychiatric history of the patient. I will continue Ativan 2 mg every 8 hours IM. I will try Ambien stat now and depending on the response this medication can be prescribed twice a day for his catatonia. Justification for Continued Inpatient Stay: Patient continues to be catatonic/psychotic
--- NOTE | 2017-11-03 15:01 | P.DIET ---
Nutritional Evaluation Type of nutrition evaluation: initial Nutrition consult regarding: Diet Evaluation (MDC for Calorie Counting) Subjective Subjective Comments: Pt was seen in his room. He would look towards me, but would not answer any questions. Would not shake his head yes or no to questions either. Calorie count envelope was given to RN in nurses station. Objective - Diagnosis Psychosis - Objective % IBW: 96 (IKA=213#) Body Weight Used for Calculations: Actual (80kg) Energy Needs - Lower Range (kCal/kg): 25 Energy Needs - Upper Range (kCal/kg): 30 Lower Limit kCal/kg (kCals): 2,000 Upper Limit kCal/kg (kCals): 2,400 Lower Limit Protein Factor (Grams per Kg): 1.0 Upper Limit Protein Factor (Grams per Kg): 1.2 Lower Protein Needs (Protein): 80 Upper Protein Needs (Protein): 96 Fluid Factor (ml/kg): 30 Estimated Fluid Needs (ml): 2,400 Dietitian Reviewed in Medical Record: Current diet, Curent medications, Intake & Output, Labs, Medical history Diet Order: Regular Objective Comments: Meds: Vitamin B12, Folic Acid, Vitamin B1 No BM recorded Assessment Assessment: Pt admitted for psychosis. He did not participate in assessment when I visited him in his room. Per review of EMR, pt has been eating approximately 50-100% of his meals. A few days had recorded 0-25% PO intake. Calorie count envelope was given to RN inside nurses station. I will add some Ensure to pt's tray and monitor acceptance. Calorie count will run 11/04-11/06. RD following. Recommendations: 1. Calorie count running 11/04-11/06. 2. Ensure TID. 3. Regular diet appropriate. Dietitian to Monitor: Lab values, Supplement acceptance, Intake & Output, Diet tolerance, Weight change, PO Intake, Medical course
[2017-11-04] MEDS: Folic Acid 1 MG Tablet PO SCH (08:23)
[2017-11-04] MEDS: Famotidine 20 MG Tablet PO SCH (08:23)
[2017-11-04] MEDS: Nystatin 100,000 UNITS/GM Powder 15 GM Bottle TOPICAL SCH ×3 (08:23→18:42)
--- NOTE | 2017-11-04 11:56 | P.PN ---
Subjective Interval history: Follow-up on patient with catatonia, epilepsy. Patient seen and examined. Patient is very concerned that he is not been restarted on his Tegretol. He states he just wants to get back on his regular medications and then focus on going home. He denies any acute medical complaints. Discussed with RN, not eating well, only 25% of meals but did perform self grooming tasks on his own. Physical Exam Vital signs: Vital Signs 11/03/17 17:03 11/04/17 06:00 Temperature 98.7 F 99 F Pulse Rate 92 H 89 Respiratory Rate 18 16 Blood Pressure 114/69 139/56 L Pulse Oximetry 98 94 L Intake & Output 11/03/17 11/04/17 11/04/17 18:59 06:59 18:59 Intake Total 840 / 840 505 / 505 240 / 240 Balance 840 / 840 505 / 505 240 / 240 Intake: Oral 840 / 840 505 / 505 240 / 240 Other: # Voids 3 1 Narrative: GENERAL: This is a thin 47-year-old male patient, no acute distress. Awake and alert. Seated in dayroom. SKIN: Warm and dry. No generalized rash. HEENT: Atraumatic. Normocephalic. Pupils equal and round. No scleral icterus. No injection or drainage. No nasal bleeding or discharge. Mucous membranes pink and moist. NECK: Trachea midline. CARDIOVASCULAR: Regular rate and rhythm. RESPIRATORY: No accessory muscle use. Clear to auscultation. Breath sounds equal bilaterally. Poor respiratory effort. GASTROINTESTINAL: Abdomen soft, non-tender, nondistended. +BS x 4 quads. MUSCULOSKELETAL: Extremities without clubbing, cyanosis, or edema. No obvious deformities. NEUROLOGICAL: Awake and alert. Cranial nerves II through XII grossly intact. Able to move all extremities spontaneously. No focal neurologic finding. Normal speech. PSYCHIATRIC: Calm and cooperative. Judgment and insight poor. Results - Labs CBC & Chem 7: 10/31/17 09:49 10/31/17 09:49 - Imaging ITS Impressions Head MRI 11/01/17 00:00 CONCLUSION: 1. Motion degraded exam. 2. No definitive acute abnormality. Specifically, no evidence for acute infarction or hemorrhage. Assessment and Plan - Assessment (1) Psychosis Code(s): F29 - Unspecified psychosis not due to a substance or known physiological condition Status: Acute (2) Tachycardia Code(s): R00.0 - Tachycardia, unspecified Status: Acute (3) Catatonia Code(s): F06.1 - Catatonic disorder due to known physiological condition Status: Acute (4) Seizure disorder Code(s): G40.909 - Epilepsy, unspecified, not intractable, without status epilepticus Status: Acute - Plan 47 year old [place] male with history of seizures and schizophrenia admitted under [facility] for agitation and change in mental status. Patient noted to be tachycardic, diaphoretic, and stiff. Schizophrenia Catatonia [facility] from [facility] for increased agitation/altered mental status -Management per psychiatric team AMS with agitation r/o NMS, serotonin syndrome, ?withdrawal. Hx of psychosis Medication list is reviewed, pt. was on Tegretol, Benadryl, melatonin, Risperdal , Depakote, benztropine, simvastatin, folic acid, Pepcid, Tylenol, Thiamine Depakote level 45.9 on 10/29 MRI brain, no acute finding -Neurology input appreciated. Seizure disorder, pt. on Tegretol, level 45.9 on 10/29 EEG, no seizure activity -seizure precautions. No seizure activity reported. -Discussed with willie Finn to resume Tegretol 200mg po TID Hyperlipidemia -continue home meds Right arm rash -continue Nystatin Noted with trouble swallowing Poor po intake -Swallow evaluation completed, per ST recommendations regular diet with thin liquids -Dietitian following for calorie count 11/04 to 11/06. Ensure TID. DVT prophylaxis -patient is ambulatory Discussed Condition With: patient, nursing staff, Dr. Melton, Dr. Johnson
[2017-11-04] MEDS: carBAMazepine 200 MG Tablet PO SCH ×2 (12:31→18:30)
--- NOTE | 2017-11-04 12:41 | P.PNPSY ---
Subjective Remarks: The patient was seen today for psychiatric reevaluation. Case was widely discussed with nursing staff and also with hospitalist involved. Collateral information from mother was obtained today. On my psychiatric evaluation I find a patient that is doing much better. He is eating his breakfast, completely verbal, answering all my questions appropriately. He is really concerned about his medications for seizures. Concern about his mental and physical condition. At times becomes disorganized, tearful, labile, but denies suicidal enemas ideation, denies visual and auditory hallucinations. Patient continues to show stiffness, delay speech, blocking thought, flat affect and difficulty ambulating. He denies suicidal enemas ideation, he denies visual and auditory hallucinations. The patient has been compliant with medications, no significant side As per mother: Melissa Haynes [phone] The patient is a 47-year-old [place]ian man domiciled with his parents in [place], he has been 2 times, has no kids, unemployed at the moment, but used to work [employer] for a long time, he has no previous psychiatric history, he has no previous psychiatric hospitalizations, he has no previous suicidal attempts, he has no family psychiatric history, he does have a significant medical history of seizures, he has been in Tegretol 600 mg 3 times daily for over 20 years, who in the last 2 months, after stopping his medications for seizures having a seizure episode, has become psychotic and catatonic. Her mother reports that about 2 months ago the patient was ready to go to [place] to visit his girlfriend, the trip was planned for a , but the Thursday before he had an episode of seizures and had to be hospitalized. Later on the mother learned that the patient has stopped his Tegretol as a suggestion of his girlfriend. After the seizure episode the patient became altered, was hospitalized in the hospital developed pneumonia, delirium and since then the patient has not been functioning. She clarifies that previous that seizure episode, the patient was a very friendly person, hard-working man, there is marked and never had any mental issues. She clarifies that the patient never has been diagnosed with schizophrenia. She also clarifies that this patient has never used any illegal drugs and alcohol. Mental Status Examination Appearance: Appropriate Consciousness: Alert, Clouded Orientation: Person, Place, Date/Time Speech: Hesitant, Other (Selective mutism) Language: Adequate Fund of Knowledge: Inadequate Attention and Concentration: Inadequate Memory: Impaired Mood: Sad Affect: Flat Thought Process & Associations: Other (Severe blocking thought) Thought Content: Bizarre thinking Hallucination Type: None Delusion Type: Paranoid Suicidal Ideation: No Suicidal Plan: No Suicidal Intention: No Homicidal Ideation: No Homicidal Plan: No Homicidal Intention: No Insight: Fair Judgment: Impulsive Assessment and Plan - Assessment (1) Catatonia Code(s): F06.1 - Catatonic disorder due to known physiological condition Status: Acute (2) Unspecified psychosis Code(s): F29 - Unspecified psychosis not due to a substance or known physiological condition Status: Acute - Plan Plan: On psychiatric evaluation today the patient shows a significant improvement in his catatonic symptoms and mental status. Patient is verbal, more communicative , able to answer most of my questions. He continues to present stiffness, difficulty ambulating, mask faces, delay speech, a little bit of oppositional behavior, disorganized thought process, labile mood. As per a long conversation with his mother, the patient has never been diagnosed with schizophrenia, he does not have any psychiatric history, no previous psychiatric hospitalizations or suicide attempts. Current episode of psychosis and catatonia developed after a seizure episode about 2 months ago. I will increase the Ativan to 2 mg every 6 hours and would change it to p.o, I will start Abilify 5 mg daily for psychosis, this has been discussed with the mother. I also have discussed with hospitalist the competing of restarting carbamazepine and reconsulting neurology to help now that we have more information about the patient. Current presentation seems more now like a post ictal psychosis, and possibly a carbamazepine withdrawal induced catatonia. Schizophrenia is now lower in the differential, still possible. Justification for Continued Inpatient Stay: Continue psychiatric admission given the level of psychosis and catatonia.
[2017-11-04] MEDS: ARIPiprazole 5 MG Tablet PO SCH (13:32)
[2017-11-05] MEDS: Folic Acid 1 MG Tablet PO SCH (08:46)
[2017-11-05] MEDS: Famotidine 20 MG Tablet PO SCH (08:46)
[2017-11-05] MEDS: Nystatin 100,000 UNITS/GM Powder 15 GM Bottle TOPICAL SCH ×3 (08:47→18:07)
[2017-11-05] MEDS: ARIPiprazole 5 MG Tablet PO SCH (08:47)
[2017-11-05] MEDS: carBAMazepine 200 MG Tablet PO SCH ×3 (08:47→18:06)
--- NOTE | 2017-11-05 12:46 | P.PNPSY ---
Subjective Remarks: The patient was seen today for psychiatric reevaluation, he was also seen in [facility], the patient has a brighter affect, is more communicative, with full facial expressions, but seems to be quite emotionally this regulated, also paranoid and internally preoccupied. He continues to have stiffness, waxy flexibility, all his catatonia is much better now. He is oriented 3, fully compliant with medications, eating 100% of his food. Mental Status Examination Appearance: Appropriate Consciousness: Alert, Clouded Orientation: Person, Place, Date/Time Speech: Hesitant, Other (Selective mutism) Language: Adequate Fund of Knowledge: Inadequate Attention and Concentration: Inadequate Memory: Impaired Mood: Sad Affect: Flat Thought Process & Associations: Other (Severe blocking thought) Thought Content: Bizarre thinking Hallucination Type: None Delusion Type: Paranoid Suicidal Ideation: No Suicidal Plan: No Suicidal Intention: No Homicidal Ideation: No Homicidal Plan: No Homicidal Intention: No Insight: Fair Judgment: Impulsive Assessment and Plan - Assessment (1) Catatonia Code(s): F06.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 Continue current psychotropic regimen. Justification for Continued Inpatient Stay: Patient needs to continue psychiatric hospitalization for stabilization
--- NOTE | 2017-11-05 13:35 | P.PN ---
Subjective Interval history: Follow-up on patient with catatonia, epilepsy. Patient seen and examined. Patient looks a little better today. More communicative. He is relieved he has been resumed on his Tegretol medication. Patient tells me that he fell out of the chair earlier today and is now having left knee and right ankle pain. He denies hitting his head or any loss of consciousness. He denies any other injury. Discussed with nursing staff, patient is eating a little more. Also he is moving better. Physical Exam Vital signs: Vital Signs 11/04/17 18:42 11/05/17 05:38 11/05/17 08:00 Temperature 98.6 F 98.2 F Pulse Rate 98 H 115 H Respiratory Rate 18 18 Blood Pressure 165/93 H 118/72 125/66 Pulse Oximetry 93 L 98 94 L 11/05/17 09:14 11/05/17 10:10 11/05/17 11:25 Temperature 98.0 F 98.0 F 98.0 F Pulse Rate 102 H 105 H 105 H Respiratory Rate 18 18 16 Blood Pressure 120/78 118/65 113/55 L Pulse Oximetry 95 95 95 Intake & Output 11/04/17 11/05/17 11/05/17 18:59 06:59 18:59 Intake Total 240 / 240 460 / 460 Balance 240 / 240 460 / 460 Intake: Oral 240 / 240 360 / 360 Oral Supplement 100 / 100 Other: # Voids 1 # Bowel Movements 0 Narrative: GENERAL: This is a thin 47-year-old male patient, no acute distress. Awake and alert. Sitting in chair in dayroom. SKIN: Warm and dry. No generalized rash. HEENT: Atraumatic. Normocephalic. Pupils equal and round. No scleral icterus. No injection or drainage. No nasal bleeding or discharge. Mucous membranes pink and moist. NECK: Trachea midline. CARDIOVASCULAR: Regular rate and rhythm. RESPIRATORY: No accessory muscle use. Clear to auscultation. Breath sounds equal bilaterally. GASTROINTESTINAL: Abdomen soft, non-tender, nondistended. +BS x 4 quads. MUSCULOSKELETAL: Extremities without clubbing, cyanosis, or edema. No obvious deformities. Positive for stiffness and waxy flexibility. Tenderness to palpation lateral aspect left knee. Difficult to assess range of motion secondary to stiffness. Mild tenderness noted to palpation medial aspect of the right ankle. No obvious swelling in either joint. NEUROLOGICAL: Awake and alert. Able to move all extremities spontaneously. No focal neurologic finding appreciated. PSYCHIATRIC: Calm and cooperative. Judgment and insight poor. Results - Labs CBC & Chem 7: 10/31/17 09:49 10/31/17 09:49 Assessment and Plan - Assessment (1) Psychosis Code(s): F29 - Unspecified psychosis not due to a substance or known physiological condition Status: Acute (2) Tachycardia Code(s): R00.0 - Tachycardia, unspecified Status: Acute (3) Catatonia Code(s): F06.1 - Catatonic disorder due to known physiological condition Status: Acute (4) Seizure disorder Code(s): G40.909 - Epilepsy, unspecified, not intractable, without status epilepticus Status: Acute - Plan 47 year old [place] male with history of seizures admitted under [facility] for agitation and change in mental status. Patient noted to be tachycardic, diaphoretic, and stiff. Catatonia with associated waxy flexibility and stiffness Psychosis [facility] from [facility] for increased agitation/altered mental status Lengthy discussion with Dr. Johnson, patient with no previous history of schizophrenia or any other psychiatric illness. Catatonia developed after patient suffered a seizure secondary to discontinuing his Tegretol medication at the urging of his girlfriend. -Management per psychiatric team -Continue with PT Seizure disorder, with recent seizure activity secondary to patient discontinuing his Tegretol medication EEG, no seizure activity -seizure precautions -Discussed with Dr. Melton who recommends resuming patient on his regular Tegretol dose 200 mg p.o. 3 times daily and having patient follow up with his own neurologist following discharge Hyperlipidemia -continue home meds Right arm rash -continue Nystatin Noted with trouble swallowing Poor po intake -Swallow evaluation completed, per ST recommendations regular diet with thin liquids -Dietitian following for calorie count. Continue Ensure 3 times daily. Left knee and right ankle pain s/p fall No head injury, no loss of consciousness No obvious deformity on examination -We will obtain x-rays of the left knee and right ankle for further evaluation DVT prophylaxis -Patient is ambulatory Discussed Condition With: Patient, nursing staff, Dr. Johnson
--- NOTE | 2017-11-05 14:06 | XR ---
EXAM DATE: 11/05/2017 1:58 PM EDT AGE/SEX: 47 years / Male INDICATIONS: fell today, joint pain CLINICAL DATA: This is the patient's initial encounter. Patient reports that signs and symptoms have been present for 1 day and indicates a pain score of 8/10. MEDICAL/SURGICAL HISTORY: . epilepsy None. COMPARISON: No prior exams available for comparison. FINDINGS: Bony structures are intact and in normal alignment. Joints are intact without dislocation or signifi cant arthropathy. Osseous density is normal. Soft tissues are unremarkable. No radiopaque foreign bodies seen. No evidence of a joint effusion. CONCLUSION: Unremarkable exam. Electronically signed by: Jerod Lui MD 11/05/2017 2:05 PM EDT
--- NOTE | 2017-11-05 14:06 | XR ---
EXAM DATE: 11/05/2017 1:56 PM EDT AGE/SEX: 47 years / Male INDICATIONS: Fell today. CLINICAL DATA: This is the patient's initial encounter. Patient reports that signs and symptoms have been present for 1 day and indicates a pain score of 7/10. MEDICAL/SURGICAL HISTORY: . epilepsy None. COMPARISON: No prior exams available for comparison. FINDINGS: Bony structures are intact and in normal alignment. Joints are intact without dislocation or signifi cant arthropathy. Osseous density is normal. Soft tissues are unremarkable. No radiopaque foreign bodies seen. CONCLUSION: Unremarkable exam. Electronically signed by: Jerod Lui MD 11/05/2017 2:05 PM EDT
--- NOTE | 2017-11-06 08:37 | P.PNPSY ---
Subjective Remarks: The patient was seen today for psychiatric reevaluation. Case was widely discussed with nursing charge. The patient is definitely more communicative, engaging better in a conversation, more logical, more coherent and relevant. However, the patient continues to be very labile, having problems modulating his emotions. He is very concerned about his medical condition, as some level catastrophic, tearful, stated that he is not going to get better and every his life. At some point he also shows some paranoia, internal preoccupation, very concerned about safety of other patients. He denies suicidal and homicidal ideation, he denies visual and auditory hallucinations. The patient is oriented in place, partially oriented in times. I also continue to show symptoms of catatonia especially stiffness, blocking thought, delay speech, difficulty walking. The patient has been compliant medications, no significant side effects reported so far. Review of Systems Psychiatric: Reports depression, Reports hopelessness, Reports other (catatonia) Mental Status Examination Appearance: Appropriate Consciousness: Alert, Clouded Orientation: Person, Place Speech: Hesitant, Other (Selective mutism) Language: Adequate Fund of Knowledge: Inadequate Attention and Concentration: Inadequate Memory: Impaired Mood: Sad Affect: Flat Thought Process & Associations: Other ( blocking thought) Thought Content: Bizarre thinking Hallucination Type: None Delusion Type: Bizarre, Paranoid Suicidal Ideation: No Suicidal Plan: No Suicidal Intention: No Homicidal Ideation: No Homicidal Plan: No Homicidal Intention: No Insight: Fair Judgment: Impulsive Assessment and Plan - Assessment (1) Catatonia Code(s): F06.1 - Catatonic disorder due to known physiological condition Status: Acute (2) Unspecified psychosis Code(s): F29 - Unspecified psychosis not due to a substance or known physiological condition Status: Acute (3) Major depressive disorder Code(s): F32.9 - Major depressive disorder, single episode, unspecified Status : Acute - Plan Plan: Seems to be improving slowly, but still stiff, psychomotor retarded, with prominent slow speech and thought process, flat affect. Also have some autonomic instability, persistent tachycardia, sweating and low fever picks. At the same time episodically confused, emotionally labile and incontinent/ dysregulated. endorses depression, hopelessness, helplessness, catastrophic thinking. Will increase Ativan to 2 mg q/4 for catatonia Will order CBC, CMP, CPK, THH, T3, T4 rule out NMS vs malignant catatonia Will start Prozac 10 to help with depression Will increase Abilify to 10 for psychotic symptom Add Namenda 5 mg bid to decrease glutamatergic activity and help catatonia Justification for Continued Inpatient Stay: Continue psychiatric admission for stabilization and safety. (3) Major depressive disorder Qualifiers: Major depression recurrence: single episode
[2017-11-06] MEDS: Folic Acid 1 MG Tablet PO SCH (08:39)
[2017-11-06] MEDS: ARIPiprazole 5 MG Tablet PO SCH (08:39)
[2017-11-06] MEDS: carBAMazepine 200 MG Tablet PO SCH ×3 (08:39→17:07)
[2017-11-06] MEDS: Famotidine 20 MG Tablet PO SCH (08:40)
[2017-11-06] MEDS: Nystatin 100,000 UNITS/GM Powder 15 GM Bottle TOPICAL SCH ×3 (08:41→17:07)
[2017-11-06 11:46] LABS: Hemoglobin 14.2 gm/dL (13.0-17.0); Mean Corpuscular HGB Conc 35.4 % (32.0-36.0); Mean Corpuscular Hemoglobin 32.2 pg (27.0-34.0); Mean Platelet Volume 7.8 fL (7.0-11.0); Platelet Count 325 th/mm3 (150-450); Red Cell Distribution Width 12.9 % (11.6-17.2); White Blood Count 8.9 th/mm3 (4.0-11.0)
[2017-11-06 11:49] LABS: Albumin 3.5 g/dL (3.4-5.0); Anion Gap 7 meq/L (5-15); Aspartate Aminotransferase 14 U/L (15-37); Blood Urea Nitrogen 5 mg/dL (7-18); Calcium 8.8 mg/dL (8.5-10.1); Carbon Dioxide 26.8 meq/L (21.0-32.0); Chloride 105 meq/L (98-107); Glomerular Filtration Rate Greater Than 89 mL/min (>89); Glucose,Random 92 mg/dL (74-106); Potassium 3.9 meq/L (3.5-5.1); Sodium 139 meq/L (136-145)
[2017-11-06] MEDS: Acetaminophen 325 MG Tablet PO PRN (11:50)
[2017-11-06 11:58] LABS: Alanine Aminotransferase 27 U/L (12-78); Alkaline Phosphatase 86 U/L (45-117); Free T4 (Free Thyroxine) 1.09 ng/dL (0.76-1.46); Total Protein 7.2 g/dL (6.4-8.2); Triiodothyronine (T3) Free 2.92 pg/mL (2.18-3.98)
[2017-11-06 12:01] LABS: Creatine Kinase 90 U/L (39-308)
--- NOTE | 2017-11-06 13:24 | P.DIET ---
Nutritional Evaluation Type of nutrition evaluation: follow-up Nutrition consult regarding: Diet Evaluation (MDC for Calorie Counting) Nutrition screening: [facility] [place] Screening comments: MDC for Calorie Count Subjective Subjective Comments: 75% for breakfast and 25% for lunch today. Objective - Diagnosis Psychosis - Objective % IBW: 96 (CPT=204#) Body Weight Used for Calculations: Actual (80kg) Energy Needs - Lower Range (kCal/kg): 25 Energy Needs - Upper Range (kCal/kg): 30 Lower Limit kCal/kg (kCals): 2,000 Upper Limit kCal/kg (kCals): 2,400 Lower Limit Protein Factor (Grams per Kg): 1.0 Upper Limit Protein Factor (Grams per Kg): 1.2 Lower Protein Needs (Protein): 80 Upper Protein Needs (Protein): 96 Fluid Factor (ml/kg): 30 Estimated Fluid Needs (ml): 2,400 Dietitian Reviewed in Medical Record: Current diet, Curent medications, Intake & Output, Labs, Medical history Diet Order: Regular Objective Comments: PMH Includes: Epilepsy, Catatonic DO A1C 4.8 Meds Include: Vitamin B12, Folic Acid, Vitamin B1, Namenda, Ativan, Abilify, Prozac, Pravachol Feeding - Current PO Supplement Current Supplement: Ensure Original Current Frequency of Supplement: Three times a day Current kCals Provided by Supplement: 250 Current Protein Provided by Supplement: 9 - kCal Count Day 1 kCal Intake: 935 Day 1 Protein Intake: 31 kCal Comments: No meal slips collected/documented for Day#2 or Day#3 Assessment Assessment: MDC for Calorie Count INCOMPLETE. 72-hour Calorie Count w/2-meal slips collected /documented. Plan to restart Calorie Count today, 11/06 through 11/08 w/ Nutrition Recs to Follow 11/09. Continue Ensure TID. Labs reviewed. Recommendations: 1. MDC for Calorie Count INCOMPLETE 2. Plan to restart Calorie Count today, 11/06 through 11/08 w/Nutrition Recs to Follow 11/09 3. Continue Ensure TID Dietitian to Monitor: Lab values, Supplement acceptance, Intake & Output, Diet tolerance, Weight change, PO Intake, Medical course
--- NOTE | 2017-11-06 14:42 | P.PN ---
Subjective Interval history: Follow-up on patient with catatonia, epilepsy. Patient seen and examined. Patient is complaining of mid thoracic spine pain since he suffered a fall in the unit several days ago. Denies any weakness, numbness or tingling in bilateral lower extremities. He denies any bowel or bladder dysfunction. Physical Exam Vital signs: Vital Signs 11/05/17 15:16 11/05/17 17:23 11/05/17 20:00 Temperature 97.8 F 98.6 F 98.5 F Pulse Rate 105 H 95 H 99 H Respiratory Rate 18 18 Blood Pressure 122/63 116/71 114/57 L Pulse Oximetry 97 96 11/06/17 05:49 Temperature 97.8 F Pulse Rate 105 H Respiratory Rate 18 Blood Pressure 129/72 Pulse Oximetry 99 Narrative: GENERAL: This is a thin 47-year-old male patient, no acute distress. Awake and alert. Ambulating on his tiptoes in the dayroom. SKIN: Warm and dry. No generalized rash. HEENT: Atraumatic. Normocephalic. Pupils equal and round. No scleral icterus. No injection or drainage. No nasal bleeding or discharge. Mucous membranes pink and moist. NECK: Trachea midline. CARDIOVASCULAR: Regular rate and rhythm. RESPIRATORY: No accessory muscle use. Clear to auscultation. Breath sounds equal bilaterally. GASTROINTESTINAL: Abdomen soft, non-tender, nondistended. +BS x 4 quads. MUSCULOSKELETAL: Extremities without clubbing, cyanosis, or edema. No obvious deformities. Positive for stiffness and waxy flexibility. Tenderness to palpation lateral aspect left knee. Difficult to assess range of motion secondary to stiffness. Mild tenderness noted to palpation medial aspect of the right ankle. No obvious swelling in either joint. +tenderness to palpation mid thoracic spine over spinous process at approximately T11 NEUROLOGICAL: Awake and alert. Able to move all extremities spontaneously. No focal neurologic finding appreciated. PSYCHIATRIC: Calm and cooperative. Judgment and insight poor. Results - Labs CBC & Chem 7: 11/06/17 11:07 11/06/17 11:07 Laboratory Results - last 24 hr 11/06/17 11/06/17 11:07 11:07 WBC 8.9 RBC 4.40 L Hgb 14.2 Hct 40.0 MCV 91.0 MCH 32.2 MCHC 35.4 RDW 12.9 Plt Count 325 MPV 7.8 Sodium 139 Potassium 3.9 Chloride 105 Carbon Dioxide 26.8 Anion Gap 7 BUN 5 L Creatinine 0.62 Estimated GFR Greater than 89 Random Glucose 92 Calcium 8.8 Total Bilirubin 0.3 AST 14 L ALT 27 Alkaline Phosphatase 86 Total Creatine Kinase 90 Total Protein 7.2 Albumin 3.5 TSH 1.150 Free T4 1.09 Free T3 2.92 - Imaging ITS Impressions Head MRI 11/01/17 00:00 CONCLUSION: 1. Motion degraded exam. 2. No definitive acute abnormality. Specifically, no evidence for acute infarction or hemorrhage. Ankle X-Ray 11/05/17 00:00 CONCLUSION: Unremarkable exam. Knee X-Ray 11/05/17 00:00 CONCLUSION: Unremarkable exam. Assessment and Plan - Assessment (1) Psychosis Code(s): F29 - Unspecified psychosis not due to a substance or known physiological condition Status: Acute (2) Tachycardia Code(s): R00.0 - Tachycardia, unspecified Status: Acute (3) Catatonia Code(s): F06.1 - Catatonic disorder due to known physiological condition Status: Acute (4) Seizure disorder Code(s): G40.909 - Epilepsy, unspecified, not intractable, without status epilepticus Status: Acute - Plan 47 year old Latvian male with history of seizures admitted under Kebede Act for agitation and change in mental status. Patient noted to be tachycardic, diaphoretic, and stiff. Catatonia with associated waxy flexibility and stiffness Psychosis Kebede acted from [facility] for increased agitation/altered mental status Lengthy discussion with Dr. Johnson, patient with no previous history of schizophrenia or any other psychiatric illness. Catatonia developed after patient suffered a seizure secondary to discontinuing his Tegretol medication at the urging of his girlfriend. -Management per psychiatric team -Continue with PT Seizure disorder, with recent seizure activity secondary to patient discontinuing his Tegretol medication EEG, no seizure activity -seizure precautions -Discussed with Dr. Melton who recommends resuming patient on his regular Tegretol dose 200 mg p.o. 3 times daily and having patient follow up with his own neurologist following discharge Hyperlipidemia -continue home meds Right arm rash -continue Nystatin Noted with trouble swallowing Poor po intake -Swallow evaluation completed, per ST recommendations regular diet with thin liquids -Dietitian following for calorie count. Continue Ensure 3 times daily. Left knee and right ankle pain s/p fall No head injury, no loss of consciousness No obvious deformity on examination -Imaging of left knee and right ankle reviewed, no acute fracture noted Thoracic spine pain s/p fall -We will obtain x-ray of the thoracic spine DVT prophylaxis -Patient is ambulatory Discussed Condition With: patient, nursing staff
[2017-11-06] MEDS: FLUoxetine 10 MG Capsule PO SCH (17:07)
--- NOTE | 2017-11-06 18:17 | XR ---
EXAM DATE: 11/06/2017 6:11 PM EDT AGE/SEX: 47 years / Male INDICATIONS: Back pain after fall today. CLINICAL DATA: This is the patient's initial encounter. Patient reports that signs and symptoms have been present for 1 day and indicates a pain score of 7/10. MEDICAL/SURGICAL HISTORY: . Epilepsy. None. COMPARISON: No prior exams available for comparison. FINDINGS: The vertebral bodies are in normal alignment without evidence of compression deformity. Mild spurs a re seen in the lower thoracic spine Bone density is normal for age. Soft tissues are grossly intact. CONCLUSION: Mild spurs at the lower thoracic spine. Electronically signed by: Stewart Escobedo MD 11/06/2017 6:16 PM EDT
[2017-11-07] MEDS: Folic Acid 1 MG Tablet PO SCH (08:38)
[2017-11-07] MEDS: carBAMazepine 200 MG Tablet PO SCH ×3 (08:38→16:59)
[2017-11-07] MEDS: Famotidine 20 MG Tablet PO SCH (08:38)
[2017-11-07] MEDS: Nystatin 100,000 UNITS/GM Powder 15 GM Bottle TOPICAL SCH ×3 (08:39→17:03)
--- NOTE | 2017-11-07 09:36 | XR ---
EXAM DATE: 11/07/2017 9:34 AM EDT AGE/SEX: 47 years / Male INDICATIONS: Shortness of breath and fever. CLINICAL DATA: This is the patient's subsequent encounter. Patient reports that signs and symptoms h ave been present for 3 days and indicates a pain score of 0/10. MEDICAL/SURGICAL HISTORY: None. None. COMPARISON: No prior exams available for comparison. FINDINGS: A single AP view of the chest demonstrates the lungs to be symmetrically aerated without evidence of mass, infiltrate or effusion. The cardiomediastinal contours are unremarkable. Osseous structures a re intact. CONCLUSION: Negative examination. Electronically signed by: Isra Corey MD 11/07/2017 9:34 AM EDT
[2017-11-07] MEDS: FLUoxetine 10 MG Capsule PO SCH (09:41)
[2017-11-07] MEDS: ARIPiprazole 5 MG Tablet PO SCH (09:41)
[2017-11-07 10:35] LABS: Baso % (Auto) 0.5 % (0.0-2.0); Eos # (Auto) 0.1 th/mm3 (0.0-0.4); Eos % (Auto) 1.7 % (0.0-4.0); Hematocrit 40.8 % (39.0-51.0); Hemoglobin 14.2 gm/dL (13.0-17.0); Lymph # (Auto) 1.7 th/mm3 (1.0-4.8); Lymph % (Auto) 22.2 % (9.0-44.0); Mean Corpuscular HGB Conc 34.9 % (32.0-36.0); Mean Corpuscular Hemoglobin 32.4 pg (27.0-34.0); Mean Corpuscular Volume 92.8 fL (80.0-100.0); Mono # (Auto) 0.7 th/mm3 (0.0-0.9); Mono % (Auto) 9.8 % (0.0-8.0); Neut % (Auto) 65.8 % (16.0-70.0); Platelet Count 288 th/mm3 (150-450); Red Blood Count 4.39 mil/mm3 (4.50-5.90); Red Cell Distribution Width 13.2 % (11.6-17.2); White Blood Count 7.6 th/mm3 (4.0-11.0)
[2017-11-07 10:58] LABS: Creatine Kinase 76 U/L (39-308)
--- NOTE | 2017-11-07 11:32 | P.PN ---
Subjective Interval history: Follow-up on patient with catatonia, epilepsy. Patient seen and examined. Contacted by nursing staff earlier today prior to rounding on patient due to patient having complaints of shortness of breath and appearing diaphoretic. Patient encountered in the day room sitting in Rachell chair. Patient appears comfortable. He is not diaphoretic. He has no complaints of chest pain or shortness of breath. He denies any nausea, vomiting or abdominal pain. He states he does not have any back pain today. VSS. He is afebrile. Physical Exam Vital signs: Vital Signs 11/06/17 18:39 11/07/17 06:11 11/07/17 08:45 Temperature 98.3 F 97.9 F 99 F Pulse Rate 108 H 90 112 H Respiratory Rate 18 18 16 Blood Pressure 112/56 L 105/52 L 119/74 Pulse Oximetry 95 95 96 Intake & Output 11/06/17 11/07/17 11/07/17 18:59 06:59 18:59 Intake Total 120 / 120 Balance 120 / 120 Intake: Oral 120 / 120 Narrative: GENERAL: This is a thin 47-year-old male patient, no acute distress. Awake and alert. Sitting in [place] in the dayroom. SKIN: Warm and dry. No generalized rash. HEENT: Atraumatic. Normocephalic. Pupils equal and round. No scleral icterus. No injection or drainage. No nasal bleeding or discharge. Mucous membranes pink and moist. NECK: Trachea midline. CARDIOVASCULAR: Regular rate and rhythm. RESPIRATORY: No accessory muscle use. Clear to auscultation. Breath sounds equal bilaterally. GASTROINTESTINAL: Abdomen soft, non-tender, nondistended. +BS x 4 quads. MUSCULOSKELETAL: Extremities without clubbing, cyanosis, or edema. No obvious deformities. Positive for stiffness and waxy flexibility. NEUROLOGICAL: Awake and alert. Able to move all extremities spontaneously. No focal neurologic finding appreciated. PSYCHIATRIC: Calm and cooperative. Judgment and insight poor. Results - Labs CBC & Chem 7: 11/07/17 09:00 11/06/17 11:07 Laboratory Results - last 24 hr 11/06/17 11/06/17 11/07/17 11:07 11:07 08:41 WBC 8.9 RBC 4.40 L Hgb 14.2 Hct 40.0 MCV 91.0 MCH 32.2 MCHC 35.4 RDW 12.9 Plt Count 325 MPV 7.8 Neut % (Auto) Lymph % (Auto) [place] % (Auto) Eos % (Auto) Baso % (Auto) Neut # (Auto) Lymph # (Auto) [place] # (Auto) Eos # (Auto) Baso # (Auto) WBC Differential Differential Comment D-Dimer Quant (PE/DVT) Sodium 139 Potassium 3.9 Chloride 105 Carbon Dioxide 26.8 Anion Gap 7 BUN 5 L Creatinine 0.62 Estimated GFR Greater than 89 POC Glucose 107 Random Glucose 92 Calcium 8.8 Total Bilirubin 0.3 AST 14 L ALT 27 Alkaline Phosphatase 86 Total Creatine Kinase 90 Troponin I Total Protein 7.2 Albumin 3.5 TSH 1.150 Free T4 1.09 Free T3 2.92 11/07/17 11/07/17 11/07/17 09:00 09:00 09:00 WBC 7.6 RBC 4.39 L Hgb 14.2 Hct 40.8 MCV 92.8 MCH 32.4 MCHC 34.9 RDW 13.2 Plt Count 288 MPV 8.0 Neut % (Auto) 65.8 Lymph % (Auto) 22.2 [place] % (Auto) 9.8 H Eos % (Auto) 1.7 Baso % (Auto) 0.5 Neut # (Auto) 5.0 Lymph # (Auto) 1.7 [place] # (Auto) 0.7 Eos # (Auto) 0.1 Baso # (Auto) 0.0 WBC Differential . Differential Comment Auto diff final D-Dimer Quant (PE/DVT) 0.39 Sodium Potassium Chloride Carbon Dioxide Anion Gap BUN Creatinine Estimated GFR POC Glucose Random Glucose Calcium Total Bilirubin AST ALT Alkaline Phosphatase Total Creatine Kinase 76 Troponin I Less than 0.02 L Total Protein Albumin TSH Free T4 Free T3 - Imaging Impressions Thoracic Spine X-Ray 11/06/17 00:00 CONCLUSION: Mild spurs at the lower thoracic spine. Chest X-Ray 11/07/17 00:00 CONCLUSION: Negative examination. Assessment and Plan - Assessment (1) Psychosis Code(s): F29 - Unspecified psychosis not due to a substance or known physiological condition Status: Acute (2) Tachycardia Code(s): R00.0 - Tachycardia, unspecified Status: Acute (3) Catatonia Code(s): F06.1 - Catatonic disorder due to known physiological condition Status: Acute (4) Seizure disorder Code(s): G40.909 - Epilepsy, unspecified, not intractable, without status epilepticus Status: Acute - Plan 47 year old Danish male with history of seizures admitted under Delio Act for agitation and change in mental status. Patient noted to be tachycardic, diaphoretic, and stiff. 11/07 patient complaining of shortness of breath and appearing diaphoretic per nursing staff. Blood sugar 107. Chest x-ray unremarkable. Troponin less than 0.02. Stat CBC unremarkable. Chemistry panel and EKG pending. Catatonia with associated waxy flexibility and stiffness Psychosis Delio acted from [facility] for increased agitation/altered mental status Lengthy discussion with Dr. Johnson, patient with no previous history of schizophrenia or any other psychiatric illness. Catatonia developed after patient suffered a seizure secondary to discontinuing his Tegretol medication at the urging of his girlfriend. -Management per psychiatric team -Continue with PT Seizure disorder, with recent seizure activity secondary to patient discontinuing his Tegretol medication EEG, no seizure activity -seizure precautions -Discussed with Dr. Melton who recommends resuming patient on his regular Tegretol dose 200 mg p.o. 3 times daily and having patient follow up with his own neurologist following discharge Hyperlipidemia -continue home meds Right arm rash -continue Nystatin Noted with trouble swallowing Poor po intake -Swallow evaluation completed, per ST recommendations regular diet with thin liquids -Dietitian following for calorie count. Continue Ensure 3 times daily. Left knee and right ankle pain s/p fall No head injury, no loss of consciousness No obvious deformity on examination -Imaging of left knee and right ankle reviewed, no acute fracture noted Thoracic spine pain s/p fall -Imaging thoracic spine negative for acute fracture DVT prophylaxis -Patient is ambulatory We will follow up on chemistry panel and EKG results. If no significant change , will sign off as patient is stable from hospitalist standpoint. Discussed Condition With: patient, nursing staff, Dr. Hardy
[2017-11-07 11:49] LABS: Alanine Aminotransferase 24 U/L (12-78); Albumin 3.5 g/dL (3.4-5.0); Anion Gap 13 meq/L (5-15); Aspartate Aminotransferase 11 U/L (15-37); Blood Urea Nitrogen 6 mg/dL (7-18); Calcium 8.7 mg/dL (8.5-10.1); Carbon Dioxide 26.5 meq/L (21.0-32.0); Chloride 104 meq/L (98-107); Glomerular Filtration Rate Greater Than 89 mL/min (>89); Glucose,Random 100 mg/dL (74-106); Potassium 3.4 meq/L (3.5-5.1); Sodium 143 meq/L (136-145)
[2017-11-07 11:51] LABS: Alkaline Phosphatase 85 U/L (45-117); Total Protein 7.5 g/dL (6.4-8.2)
--- NOTE | 2017-11-07 16:24 | P.PNPSY ---
Subjective Remarks: Patient was seen and case discussed with nursing. Interview conducted in Romansh. Patient was somnolent and was woken up for the interview. Patient is quite disorganized and is only oriented to himself at this time. Continues with bizarre behaviors such as walking on his toes. Patient states that he was doing well with this family before he got here and hopes to continue doing well when he leaves the hospital. He says he is no intent of hurting himself or others. He is compliant with his medications. Insight is poor Mental Status Examination Appearance: Appropriate Consciousness: Alert, Clouded Orientation: Person, Place Speech: Hesitant, Other (Selective mutism) Language: Adequate Fund of Knowledge: Inadequate Attention and Concentration: Inadequate Memory: Impaired Mood: Sad Affect: Flat Thought Process & Associations: Other ( blocking thought) Thought Content: Bizarre thinking Hallucination Type: None Delusion Type: Bizarre, Paranoid Suicidal Ideation: No Suicidal Plan: No Suicidal Intention: No Homicidal Ideation: No Homicidal Plan: No Homicidal Intention: No Insight: Fair Judgment: Impulsive Assessment and Plan - Assessment (1) Catatonia Code(s): F06.1 - Catatonic disorder due to known physiological condition Status: Acute (2) Unspecified psychosis Code(s): F29 - Unspecified psychosis not due to a substance or known physiological condition Status: Acute (3) Major depressive disorder Code(s): F32.9 - Major depressive disorder, single episode, unspecified Status : Acute - Plan Plan: Continue current treatment plan Justification for Continued Inpatient Stay: Patient would decompensate in a less restrictive setting (3) Major depressive disorder Qualifiers: Major depression recurrence: single episode
[2017-11-08] MEDS: Famotidine 20 MG Tablet PO SCH (09:23)
[2017-11-08] MEDS: Folic Acid 1 MG Tablet PO SCH (09:23)
[2017-11-08] MEDS: ARIPiprazole 5 MG Tablet PO SCH (09:23)
[2017-11-08] MEDS: Nystatin 100,000 UNITS/GM Powder 15 GM Bottle TOPICAL SCH ×3 (09:24→17:12)
[2017-11-08] MEDS: FLUoxetine 10 MG Capsule PO SCH (09:24)
[2017-11-08] MEDS: carBAMazepine 200 MG Tablet PO SCH ×3 (09:24→17:12)
--- NOTE | 2017-11-08 12:46 | P.PNPSY ---
Subjective Remarks: Patient was seen and case discussed with nursing. Patient may have had a seizure yesterday and is getting workup he is medical team. Everything is negative so far and they are recommending to continue on Tegretol 3 times a day. Patient has various somatic delusions and believes that his feet. Fall off of he does not exercise them. He is asking to resume his physical therapy. Otherwise he is more talkative and interactive. He does deny suicidal or homicidal ideation intent or plan Mental Status Examination Appearance: Appropriate Consciousness: Alert, Clouded Orientation: Person, Place Speech: Hesitant, Other (Selective mutism) Language: Adequate Fund of Knowledge: Inadequate Attention and Concentration: Inadequate Memory: Impaired Mood: Sad Affect: Flat Thought Process & Associations: Other ( blocking thought) Thought Content: Bizarre thinking Hallucination Type: None Delusion Type: Bizarre, Paranoid Suicidal Ideation: No Suicidal Plan: No Suicidal Intention: No Homicidal Ideation: No Homicidal Plan: No Homicidal Intention: No Insight: Fair Judgment: Impulsive Assessment and Plan - Assessment (1) Catatonia Code(s): F06.1 - Catatonic disorder due to known physiological condition Status: Acute (2) Unspecified psychosis Code(s): F29 - Unspecified psychosis not due to a substance or known physiological condition Status: Acute (3) Major depressive disorder Code(s): F32.9 - Major depressive disorder, single episode, unspecified Status : Acute - Plan Plan: Physical therapy Justification for Continued Inpatient Stay: Patient would decompensate in a less restrictive setting (3) Major depressive disorder Qualifiers: Major depression recurrence: single episode
--- NOTE | 2017-11-08 15:39 | ECG ---
Date Performed: 11/07/2017 Time Performed: 14:04:34 PTAGE: 47 years EKG: SINUS TACHYCARDIA Reverse limb leads, no other acute changes on tracing. Compared to previo us tracing, there are now reversed limb leads, recommend repeat tracing with correct performance makeup artist. ABNORMA L ECG PREVIOUS TRACING : 10/31/2017 14.51 DOCTOR: Marshal Barnes Interpretating Date/Time 11/08/2017 15:37:53
--- NOTE | 2017-11-08 19:32 | XR ---
EXAM DATE: 11/08/2017 7:25 PM EDT AGE/SEX: 47 years / Male INDICATIONS: Fall alert. Left shoulder pain. CLINICAL DATA: This is the patient's initial encounter. Patient reports that signs and symptoms have been present for 1 day and indicates a pain score of 6/10. MEDICAL/SURGICAL HISTORY: None. None. COMPARISON: No prior exams available for comparison. FINDINGS: No definite fractures, or dislocations are identified. No definite lytic or sclerotic les ion is seen. The joint space is well maintained. CONCLUSION: Unremarkable study. Electronically signed by: Jo Avitia MD 11/08/2017 7:31 PM EDT
--- NOTE | 2017-11-08 19:35 | XR ---
EXAM DATE: 11/08/2017 7:26 PM EDT AGE/SEX: 47 years / Male INDICATIONS: Fall alert. Left hip pain. CLINICAL DATA: This is the patient's initial encounter. Patient reports that signs and symptoms have been present for 1 day and indicates a pain score of 6/10. MEDICAL/SURGICAL HISTORY: None. None. COMPARISON: No prior exams available for comparison. FINDINGS: No definite fractures, or dislocations are identified. No definite lytic or sclerotic les ion is seen. CONCLUSION: Unremarkable study. Electronically signed by: Jo Avitia MD 11/08/2017 7:34 PM EDT
[2017-11-09] MEDS: Famotidine 20 MG Tablet PO SCH (09:02)
[2017-11-09] MEDS: carBAMazepine 200 MG Tablet PO SCH ×3 (09:02→17:09)
[2017-11-09] MEDS: Folic Acid 1 MG Tablet PO SCH (09:02)
[2017-11-09] MEDS: ARIPiprazole 5 MG Tablet PO SCH (09:02)
[2017-11-09] MEDS: FLUoxetine 10 MG Capsule PO SCH (09:03)
[2017-11-09] MEDS: Nystatin 100,000 UNITS/GM Powder 15 GM Bottle TOPICAL SCH ×3 (09:05→17:09)
--- NOTE | 2017-11-09 12:44 | P.PNPSY ---
Subjective Remarks: The patient was seen today for psychiatric reevaluation. Case was widely discussed with nurse in charge. Documentation from the weekend was reviewed. On my psychiatric evaluation today the patient is on his bed, he is somewhat sedated, sleepy, but cooperative. The patient reports feeling better today, but still having difficulties moving and walking. He reports sad mood, he is a little catastrophic stated that he is noted to be able to get better neighboring his life, denies suicidal and homicidal ideation, denies visual and auditory hallucinations. He is oriented in place, partially oriented in time. He has been taking her medications, no more side effects than sedation. No agitation, no aggressive behavior reported, however, the nurse states that he continues to be arenas. Mental Status Examination Appearance: Appropriate Consciousness: Alert, Clouded Orientation: Person, Place Speech: Hesitant, Other (Selective mutism) Language: Adequate Fund of Knowledge: Inadequate Attention and Concentration: Inadequate Memory: Impaired Mood: Sad Affect: Flat Thought Process & Associations: Other ( blocking thought) Thought Content: Bizarre thinking Hallucination Type: None Delusion Type: Bizarre, Paranoid Suicidal Ideation: No Suicidal Plan: No Suicidal Intention: No Homicidal Ideation: No Homicidal Plan: No Homicidal Intention: No Insight: Fair Judgment: Impulsive Assessment and Plan - Assessment (1) Catatonia Code(s): F06.1 - Catatonic disorder due to known physiological condition Status: Acute (2) Unspecified psychosis Code(s): F29 - Unspecified psychosis not due to a substance or known physiological condition Status: Acute (3) Major depressive disorder Code(s): F32.9 - Major depressive disorder, single episode, unspecified Status : Acute - Plan Plan: The patient remains depressed, catatonic, modest improvement in mood motoric activity. Will increase Prozac to 10 mg daily. Justification for Continued Inpatient Stay: Patient continues to be acutely catatonic and depressed. (3) Major depressive disorder Qualifiers: Major depression recurrence: single episode
[2017-11-09] MEDS: FLUoxetine 20 MG Capsule PO SCH (13:53)
--- NOTE | 2017-11-09 15:03 | P.DIET ---
Nutritional Evaluation Type of nutrition evaluation: follow-up Nutrition consult regarding: Diet Evaluation (MDC for Calorie Counting) Nutrition [place]: [facility] [place]: MDC for Calorie Count Subjective Subjective Comments: Pt ambulating in the Unit hallway w/his walker after lunch today. Pt w/25% po for breakfast and 50% po intake for lunch today. Objective - Diagnosis Psychosis - Objective % IBW: 96 (RIG=505#) Body Weight Used for Calculations: Actual (80kg) Energy Needs - Lower Range (kCal/kg): 25 Energy Needs - Upper Range (kCal/kg): 30 Lower Limit kCal/kg (kCals): 2,000 Upper Limit kCal/kg (kCals): 2,400 Lower Limit Protein Factor (Grams per Kg): 1.0 Upper Limit Protein Factor (Grams per Kg): 1.2 Lower Protein Needs (Protein): 80 Upper Protein Needs (Protein): 96 Fluid Factor (ml/kg): 30 Estimated Fluid Needs (ml): 2,400 Dietitian Reviewed in Medical Record: Current diet, Curent medications, Intake & Output, Labs, Medical history Diet Order: Regular Objective Comments: PMH Includes: Epilepsy, Catatonic DO A1C 4.8 Meds Include: Vitamin B12, Folic Acid, Vitamin B1, Namenda, Ativan, Abilify, Prozac, Pravachol, Pepcid Feeding - Current PO Supplement Current Supplement: Ensure Original Current Frequency of Supplement: Three times a day Current kCals Provided by Supplement: 250 Current Protein Provided by Supplement: 9 - kCal Count Day 1 kCal Intake: 1,320 Day 1 Protein Intake: 46 Day 2 kCal Intake: 675 Day 2 Protein Intake: 29 Day 3 kCal Intake: 813 Day 3 Protein Intake: 40 kCal Comments: Day#1: 2-meal slips collected Day#2: 3-meal slips collected Day#3: 2-meal slips collected Assessment Assessment: MDC for Calorie Count w/INADEQUATE PO intake. Pt averaged less than 50% for assessed needs on all 3-days(936 kcal and 38g Protein). Pt drinks the Ensure and also drinks milk. Replace Ensure w/ Ensure Enlive TID(= 350 kcal and 20g Protein per serving). Send Milk w/Meals. Labs reviewed. Wt changes noted w/a 3.6 kg wt loss since admission-monitor. Dietitian following. Recommendations: 1. MDC for Calorie Count w/INADEQUATE PO intake 2. Replace Ensure w/ Ensure Enlive TID 3. Send Milk w/Meals 4. Dietitian following Dietitian to Monitor: Lab values, Supplement acceptance, Intake & Output, Diet tolerance, Weight change, PO Intake, Medical course
[2017-11-09] MEDS: Acetaminophen 325 MG Tablet PO PRN (19:37)
[2017-11-10] MEDS: carBAMazepine 200 MG Tablet PO SCH ×3 (09:36→17:33)
[2017-11-10] MEDS: FLUoxetine 20 MG Capsule PO SCH (09:36)
[2017-11-10] MEDS: Famotidine 20 MG Tablet PO SCH (09:36)
[2017-11-10] MEDS: Folic Acid 1 MG Tablet PO SCH (09:37)
[2017-11-10] MEDS: ARIPiprazole 5 MG Tablet PO SCH (09:37)
[2017-11-10] MEDS: Nystatin 100,000 UNITS/GM Powder 15 GM Bottle TOPICAL SCH ×3 (09:37→17:34)
--- NOTE | 2017-11-10 10:38 | XR ---
EXAM DATE: AGE/SEX: 47 years / Male INDICATIONS: Fall alert. Injury to left side of face. Swelling. CLINICAL DATA: This is the patient's initial encounter. Patient reports that signs and symptoms have been present for 1 day and indicates a pain score of 7/10. MEDICAL/SURGICAL HISTORY: None. None. COMPARISON: No prior exams available for comparison. FINDINGS: Two view examination of the facial bones demonstrates no gross evidence of fracture. No radiopaque f oreign bodies are seen. The paranasal sinuses are grossly clear. Nasal bones are grossly intact. CONCLUSION: No acute fractures are demonstrated. Electronically signed by: Jerod Lui MD 11/10/2017 10:36 AM EDT
--- NOTE | 2017-11-10 11:32 | P.PNPSY ---
Subjective Remarks: Patient seen and examined with nurse. Chart reviewed. Case discussed with nursing staff as well as with Dr. Yusuf. On my exam, patient presents as somewhat needy and attention-seeking. There is no evidence of ongoing catatonia : no stupor, no muteness, no posturing or stereotypies. Mood is "fine" and the patient denies SI/HI. He is vague when asked about auditory hallucinations but denies any CAH. He has a very brief episode of head shaking that I initially interpreted as simply a gesture in conversation, but the patient calls attention to this behavior and says that he had a "seizure." However, this spell occurred without impairment in consciousness nor were there any post- ictal phenomena or other associated signs of seizure. No side effects from medications. No physical complaints. Nurse calls me in the afternoon to indicate that patient had another episode of head shaking that he brought to the attention of nursing staff, again without associated signs of seizure. Vital Signs Temp Pulse Resp BP Pulse Ox 11/10/17 05:57 98.2 F 90 18 121/58 L 97 11/09/17 17:38 98.7 F 100 H 16 137/77 97 Intake and Output 11/10/17 11/10/17 11/10/17 06:59 14:59 22:59 Intake Total 0 / 0 Balance 0 / 0 Intake: Oral 0 / 0 Other: # Voids 1 Date of Last Bowel Movement 11/09/17 Laboratory Tests 10/31/17 11/06/17 11/07/17 14:00 11:07 09:00 WBC Hgb Plt Count Sodium 143 Potassium 3.4 L Chloride 104 Carbon Dioxide 26.5 BUN 6 L Creatinine 0.70 Estimated GFR Greater than 89 AST 11 L ALT 24 Alkaline Phosphatase 85 Total Creatine Kinase Troponin I C-Reactive Protein 0.52 H Vitamin B12 1037 H TSH 1.150 Free T4 1.09 Free T3 2.92 11/07/17 11/07/17 09:00 09:00 WBC 7.6 Hgb 14.2 Plt Count 288 Sodium Potassium Chloride Carbon Dioxide BUN Creatinine Estimated GFR AST ALT Alkaline Phosphatase Total Creatine Kinase 76 Troponin I Less than 0.02 L C-Reactive Protein Vitamin B12 TSH Free T4 Free T3 Labs reviewed. Review of Systems All other systems reviewed negative except as stated in HPI Mental Status Examination Appearance: Appropriate Consciousness: Alert Orientation: Person, Place (at least) Motor Activity: Other (As above. No other motor abnormalities noted.) Speech: Unremarkable Language: Adequate Fund of Knowledge: Inadequate Attention and Concentration: Adequate Memory: Unremarkable (Grossly intact on clinical exam) Mood: Other ("Fine") Affect: Blunt Thought Process & Associations: Intact Thought Content: Appropriate Hallucination Type: Auditory (Vague, noncommand) Delusion Type: None Suicidal Ideation: No Suicidal Plan: No Suicidal Intention: No Homicidal Ideation: No Homicidal Plan: No Homicidal Intention: No Insight: Fair Judgment: Impulsive Assessment and Plan - Assessment (1) Unspecified psychosis Code(s): F29 - Unspecified psychosis not due to a substance or known physiological condition Status: Acute (2) Major depressive disorder Code(s): F32.9 - Major depressive disorder, single episode, unspecified Status : Acute (3) Catatonia Code(s): F06.1 - Catatonic disorder due to known physiological condition Status: Resolved - Plan Plan: Catatonia appears to be resolved. Patient remains on high dose of scheduled Ativan. I would like to begin tapering the dose of Ativan, but I will request further hospitalist consultation to address head-shaking behavior prior to doing so, although my suspicion for seizure with EEG correlate is lower. I will check another EEG and also check a CBZ level in the morning. Prozac was recently increased, and I will continue this medication as ordered. Continue other psychotropics as ordered. Continue other medications and care as ordered. Justification for Continued Inpatient Stay: Risk for decompensation in less restrictive environment. Discharge Planning: Pending psychiatric stabilization. (2) Major depressive disorder Qualifiers: Major depression recurrence: single episode
--- NOTE | 2017-11-10 16:32 | P.PN ---
Subjective Interval history: Reconsult on patient with seizures. Patient seen and examined. Patient reportedly had two episodes of head shaking earlier today both of which were witnessed. Per review of Dr. Palma's note, patient had a brief episode of head shaking that he interpreted as a gesture but then patient called attention to the shaking stating he had a seizure. Discussed with nursing staff, who states patient shook his head for less than a minute. During that time, a nurse lifted his hand up and he kept it held up in the air. He then dropped his hand and stated "I think it is my epilepsy". During neither episode did patient have change in consciousness, bite his tongue, have urinary or bowel incontinence and no postictal confusion. His vital signs remained stable. Reportedly, he told the nursing staff later he did not have a seizure. Currently, patient appears comfortable sitting in [employer] in the dayroom. He tells me he was watching a show with fighting and guns and it made him very anxious causing him to have the seizure. He denies any tongue biting, urinary or bowel incontinence or postictal confusion. He tells me he is sleepy after having the "seizure" and is upset the nurses won't let him go back to his room to sleep. He says he would like to eat and go to bed. He denies any chest pain or shortness of breath. He denies any nausea, vomiting or abdominal pain. Physical Exam Vital signs: Vital Signs 11/09/17 17:38 11/10/17 05:57 Temperature 98.7 F 98.2 F Pulse Rate 100 H 90 Respiratory Rate 16 18 Blood Pressure 137/77 121/58 L Pulse Oximetry 97 97 Intake & Output 11/09/17 11/10/17 11/10/17 18:59 06:59 18:59 Intake Total 1470 / 1470 220 / 220 Balance 1470 / 1470 220 / 220 Intake: Oral 1470 / 1470 120 / 120 Oral Supplement 100 / 100 Other: # Voids 3 1 Date of Last Bowel Movement 11/08/17 11/09/17 # Bowel Movements 0 Narrative: GENERAL: This is a thin 47-year-old male patient, no acute distress. Awake and alert. Sitting in [employer] in the dayroom. Appears comfortable. SKIN: Warm and dry. No generalized rash. HEENT: Atraumatic. Normocephalic. Pupils equal and round. No scleral icterus. No injection or drainage. No nasal bleeding or discharge. Mucous membranes pink and moist. Tongue atraumatic. NECK: Trachea midline. CARDIOVASCULAR: Regular rate and rhythm. RESPIRATORY: No accessory muscle use. Clear to auscultation. Breath sounds equal bilaterally. GASTROINTESTINAL: Abdomen soft, non-tender, nondistended. +BS x 4 quads. MUSCULOSKELETAL: Extremities without clubbing, cyanosis, or edema. No obvious deformities. NEUROLOGICAL: Awake and alert. Able to move all extremities spontaneously. No focal neurologic finding appreciated. PSYCHIATRIC: Calm and cooperative. Judgment and insight poor. Results - Labs CBC & Chem 7: 11/07/17 09:00 11/07/17 09:00 - Imaging Impressions Face X-Ray 11/08/17 18:57 CONCLUSION: No acute fractures are demonstrated. Assessment and Plan - Assessment (1) Psychosis Code(s): F29 - Unspecified psychosis not due to a substance or known physiological condition Status: Acute (2) Tachycardia Code(s): R00.0 - Tachycardia, unspecified Status: Acute (3) Catatonia Code(s): F06.1 - Catatonic disorder due to known physiological condition Status: Resolved (4) Seizure disorder Code(s): G40.909 - Epilepsy, unspecified, not intractable, without status epilepticus Status: Acute - Plan 47 year old [place] male with history of seizures admitted under Kebede Act for agitation and change in mental status. Patient noted to be tachycardic, diaphoretic, and stiff. Catatonia with associated waxy flexibility and stiffness Psychosis Delio acted from [facility] for increased agitation/altered mental status Lengthy discussion with Dr. Johnson, patient with no previous history of schizophrenia or any other psychiatric illness. Catatonia developed after patient suffered a seizure secondary to discontinuing his Tegretol medication at the urging of his girlfriend. -Management per psychiatric team -Continue with PT Seizure disorder, with recent seizure activity secondary to patient discontinuing his Tegretol medication EEG, no seizure activity -seizure precautions -Discussed with Dr. Melton who recommends resuming patient on his regular Tegretol dose 200 mg p.o. 3 times daily and having patient follow up with his own neurologist following discharge 11/10 - asked to see patient as reconsult for 2 episodes of head shaking, witnessed by medical staff, no associated seizure related symptoms. Does not appear to have been breakthrough seizure activity or pseudoseizure ?attention seeking behavior. Agree with repeat EEG and checking Tegretol level. Hyperlipidemia -continue home meds Noted with trouble swallowing Poor po intake -Swallow evaluation completed, per ST recommendations regular diet with thin liquids -Dietitian following for calorie count. Continue Ensure 3 times daily. Left knee and right ankle pain s/p fall No head injury, no loss of consciousness No obvious deformity on examination -Imaging of left knee and right ankle reviewed, no acute fracture noted Thoracic spine pain s/p fall -Imaging thoracic spine negative for acute fracture DVT prophylaxis -Patient is ambulatory Discussed Condition With: patient, nursing staff, Dr. Fraire
[2017-11-11] MEDS: carBAMazepine 200 MG Tablet PO SCH ×3 (08:24→18:28)
[2017-11-11] MEDS: Folic Acid 1 MG Tablet PO SCH (08:24)
[2017-11-11] MEDS: Famotidine 20 MG Tablet PO SCH (08:24)
[2017-11-11] MEDS: ARIPiprazole 5 MG Tablet PO SCH (08:24)
[2017-11-11] MEDS: FLUoxetine 20 MG Capsule PO SCH (08:24)
[2017-11-11] MEDS: Nystatin 100,000 UNITS/GM Powder 15 GM Bottle TOPICAL SCH ×3 (08:25→18:27)
[2017-11-11 09:56] LABS: Anion Gap 10 meq/L (5-15); Blood Urea Nitrogen 4 mg/dL (7-18); Calcium 8.6 mg/dL (8.5-10.1); Carbon Dioxide 23.6 meq/L (21.0-32.0); Chloride 104 meq/L (98-107); Glomerular Filtration Rate Greater Than 89 mL/min (>89); Glucose,Random 116 mg/dL (74-106); Potassium 3.7 meq/L (3.5-5.1); Sodium 138 meq/L (136-145)
[2017-11-11 09:58] LABS: Carbamazepine (Tegretol) 6.4 mcg/mL (4.0-12.0)
--- NOTE | 2017-11-11 11:16 | P.PNPSY ---
Subjective Remarks: Patient seen and examined. Chart reviewed. Nutrition data reviewed. Case discussed with nursing staff. Just prior to my evaluation this morning, patient was found on floor in hallway next to his walker. He relates to me that he tripped. He denies hitting his head and complains only of pain in the midline in his thoracic spine, although there is no evidence of deformity on exam, nor is there any point tenderness to palpation at or around the area that he indicates. He has no other physical complaints. His affect is a little dysphoric. He does not voice any SI/HI. Some cluster B personality traits are noted. I conferred with hospitalist midlevel provider regarding patient's pain complaints today, who recommends x-ray of the T-spine, which was read as normal. I returned to re-evaluate the patient after he returned from x-ray, but the patient was napping and did not wish to participate in interview. No signs of catatonia. No evident physical distress on re-evaluation. Vital Signs Temp Pulse Resp BP Pulse Ox 11/10/17 18:00 98.4 F 83 15 109/55 L 98 11/10/17 17:46 98.2 F 97 H 18 100/59 L 97 Intake and Output 11/11/17 11/11/17 11/11/17 06:59 14:59 22:59 Intake Total 600 / 600 Balance 600 / 600 Intake: Oral 600 / 600 Other: Date of Last Bowel Movement 11/09/17 Laboratory Results - last 24 hr 11/11/17 08:20 Sodium 138 Potassium 3.7 Chloride 104 Carbon Dioxide 23.6 Anion Gap 10 BUN 4 L Creatinine 0.55 L Estimated GFR Greater than 89 Random Glucose 116 H Calcium 8.6 Carbamazepine 6.4 Labs reviewed. CBZ level within therapeutic range. EEG obtained, read pending. Impressions Thoracic Spine X-Ray 11/11/17 00:00 CONCLUSION: Negative examination. Review of Systems All other systems reviewed negative except as stated in HPI Mental Status Examination Appearance: Appropriate Consciousness: Alert Orientation: Person, Place (at least) Motor Activity: Other (No motor abnormalities noted. No ictal activity noted.) Speech: Unremarkable Language: Adequate Fund of Knowledge: Inadequate Attention and Concentration: Adequate Memory: Unremarkable (Grossly intact on clinical exam) Mood: Oppositional (Mild), Irritable (Mild) Affect: Other (Somewhat dysphoric) Thought Process & Associations: Intact Thought Content: Appropriate Hallucination Type: None Delusion Type: None Suicidal Ideation: No (No SI voiced) Homicidal Ideation: No (No HI voiced) Insight: Fair Judgment: Impulsive Assessment and Plan - Assessment (1) Unspecified psychosis Code(s): F29 - Unspecified psychosis not due to a substance or known physiological condition Status: Acute (2) Major depressive disorder Code(s): F32.9 - Major depressive disorder, single episode, unspecified Status : Acute - Plan Plan: I am concerned that scheduled benzodiazepine is increasing risk for fall. I will begin to taper this, first to to 1.5mg q4h. Continue other psychotropics as ordered. Hospitalist input appreciated. Follow-up EEG results. Continue to monitor on the inpatient unit. Continue other medications and care as ordered. Justification for Continued Inpatient Stay: Medication changes. Risk for decompensation in less restrictive environment. Discharge Planning: Pending psychiatric stabilization. (2) Major depressive disorder Qualifiers: Major depression recurrence: single episode
--- NOTE | 2017-11-11 12:35 | XR ---
EXAM DATE: 11/11/2017 12:32 PM EDT AGE/SEX: 47 years / Male INDICATIONS: Patient fell today CLINICAL DATA: This is the patient's subsequent encounter. Patient reports that signs and symptoms h ave been present for 1 day and indicates a pain score of 4/10. MEDICAL/SURGICAL HISTORY: . Epilepsy None. COMPARISON: [facility] [place], THORACIC SPINE AP/LAT/SW 3V, 11/06/2017. . FINDINGS: The vertebral bodies are in normal alignment without evidence of compression deformity. Bone density is normal for age. Soft tissues are grossly intact. CONCLUSION: Negative examination. Electronically signed by: Isra Corey MD 11/11/2017 12:33 PM EDT
--- NOTE | 2017-11-11 13:42 | P.PN ---
Subjective Interval history: Follow up on patient with seizures. Patient had a witnessed fall this morning. Discussed with nursing staff, patient was impatient and got up unassisted walking on his tiptoes and fell. Patient did not hit his head, no loss of distance. Patient complained of mid back pain and thoracic spine films were obtained and were negative for any acute fracture. Patient is resting comfortably at this time. Patients blood pressure has been a little on the low side. Repeat EEG is pending. Physical Exam Vital signs: Vital Signs 11/10/17 17:46 11/10/17 18:00 Temperature 98.2 F 98.4 F Pulse Rate 97 H 83 Respiratory Rate 18 15 Blood Pressure 100/59 L 109/55 L Pulse Oximetry 97 98 Intake & Output 11/10/17 11/11/17 11/11/17 18:59 06:59 18:59 Intake Total 1800 / 1800 220 / 220 360 / 360 Balance 1800 / 1800 220 / 220 360 / 360 Intake: Oral 1800 / 1800 120 / 120 360 / 360 Oral Supplement 100 / 100 Other: # Voids 3 2 Date of Last Bowel Movement 11/09/17 11/09/17 # Bowel Movements 0 Narrative: GENERAL: This is a thin 47-year-old male patient, no acute distress. Resting in bed. Appears comfortable. SKIN: Warm and dry. No generalized rash. HEENT: Atraumatic. Normocephalic. Pupils equal and round. No scleral icterus. No injection or drainage. No nasal bleeding or discharge. Mucous membranes pink and moist. Tongue atraumatic. NECK: Trachea midline. CARDIOVASCULAR: Regular rate and rhythm. RESPIRATORY: No accessory muscle use. Clear to auscultation. Breath sounds equal bilaterally. GASTROINTESTINAL: Abdomen soft, non-tender, nondistended. +BS x 4 quads. MUSCULOSKELETAL: Extremities without clubbing, cyanosis, or edema. No obvious deformities. NEUROLOGICAL: Awake and alert. Able to move all extremities spontaneously. No focal neurologic finding appreciated. PSYCHIATRIC: Calm and cooperative. Judgment and insight poor. Results - Labs CBC & Chem 7: 11/07/17 09:00 11/11/17 08:20 Laboratory Results - last 24 hr 11/11/17 08:20 Sodium 138 Potassium 3.7 Chloride 104 Carbon Dioxide 23.6 Anion Gap 10 BUN 4 L Creatinine 0.55 L Estimated GFR Greater than 89 Random Glucose 116 H Calcium 8.6 Carbamazepine 6.4 - Imaging Impressions Thoracic Spine X-Ray 11/11/17 00:00 CONCLUSION: Negative examination. Assessment and Plan - Assessment (1) Psychosis Code(s): F29 - Unspecified psychosis not due to a substance or known physiological condition Status: Acute (2) Tachycardia Code(s): R00.0 - Tachycardia, unspecified Status: Acute (3) Catatonia Code(s): F06.1 - Catatonic disorder due to known physiological condition Status: Resolved (4) Seizure disorder Code(s): G40.909 - Epilepsy, unspecified, not intractable, without status epilepticus Status: Acute - Plan 47 year old [place] male with history of seizures admitted under Kebede Act for agitation and change in mental status. Patient noted to be tachycardic, diaphoretic, and stiff. Catatonia with associated waxy flexibility and stiffness Psychosis Kebede acted from [facility] for increased agitation/altered mental status Lengthy discussion with Dr. Johnson, patient with no previous history of schizophrenia or any other psychiatric illness. Catatonia developed after patient suffered a seizure secondary to discontinuing his Tegretol medication at the urging of his girlfriend. -Management per psychiatric team -Continue with PT Seizure disorder, with recent seizure activity secondary to patient discontinuing his Tegretol medication EEG, no seizure activity -seizure precautions -Discussed with Dr. Melton who recommends resuming patient on his regular Tegretol dose 200 mg p.o. 3 times daily and having patient follow up with his own neurologist following discharge 11/10 - asked to see patient as reconsult for 2 episodes of head shaking, witnessed by medical staff, no associated seizure related symptoms. Does not appear to have been breakthrough seizure activity or pseudoseizure ?attention seeking behavior. Agree with repeat EEG and checking Tegretol level. 11/11 Tegretol level 6.4. Repeat EEG pending. No further episodes of head shaking. Hyperlipidemia -continue home meds Noted with trouble swallowing Poor po intake -Swallow evaluation completed, per ST recommendations regular diet with thin liquids -Dietitian following for calorie count. Continue Ensure 3 times daily. Left knee and right ankle pain s/p fall No head injury, no loss of consciousness No obvious deformity on examination -Imaging of left knee and right ankle reviewed, no acute fracture noted Thoracic spine pain s/p fall 11/11 patient had second fall, witnessed, did not hit his head. No LOC. -Repeat imaging thoracic spine negative for acute fracture -fall precautions DVT prophylaxis -Patient is ambulatory
[2017-11-11] MEDS: LORazepam 1 MG Tablet PO SCH ×3 (18:27→23:24)
--- NOTE | 2017-11-11 20:04 | MG ---
cc: Mackenzie Condon MD EEG NUMBER: [id number]. REFERRING PHYSICIAN: Jone Palma MD CLINICAL HISTORY: In room 2501 awake, drowsy, asleep with photic done. The patient would not cooperate with hyperventilation. Last EEG 11/01/2017 was normal and asleep. MRI: No definite abnormality, but a lot of artifact from motion. This is a 47-year-old man with a brief episode of head shaking. Patient said it was a seizure without loss of consciousness, no postictal period. History of schizophrenia, possible epilepsy, currently on Abilify, Tegretol, Namenda, Nystatin. DESCRIPTION OF RECORD: There are some faster frequency waves at times that look like a theta waves 1213 with 20 microvolt amplitude. A lot of artifact seen as well. EKG does look sinus at times. There is normal alpha rhythm. There are no epileptiform features. The patient did not do hyperventilation. Photic stimulation did elicit a posterior driving response. IMPRESSION: Subabnormalities consistent with beta frequency, may be some residual medication effect, but overall normal appearing study otherwise. Clinical correlation. Mackenzie Condon MD DF/dionisio , 07:37 PM , 07:43 PM
[2017-11-12] MEDS: LORazepam 1 MG Tablet PO SCH ×6 (04:09→23:31)
[2017-11-12] MEDS: carBAMazepine 200 MG Tablet PO SCH ×3 (08:43→20:34)
[2017-11-12] MEDS: ARIPiprazole 5 MG Tablet PO SCH (08:43)
[2017-11-12] MEDS: Famotidine 20 MG Tablet PO SCH (08:43)
[2017-11-12] MEDS: FLUoxetine 20 MG Capsule PO SCH (08:44)
[2017-11-12] MEDS: Folic Acid 1 MG Tablet PO SCH (08:44)
--- NOTE | 2017-11-12 11:04 | P.PN ---
Subjective Interval history: Follow up on patient with seizures. Patient seen and examined. Patient has no acute medical complaints today. He denies any recurrence of seizure activity. He states he just wants to go back home to [place] and be with his family. Discussed with nursing staff, no acute events noted overnight. Physical Exam Vital signs: Vital Signs 11/11/17 17:27 11/12/17 05:54 Temperature 97.2 F L 98.5 F Pulse Rate 76 91 H Respiratory Rate 18 18 Blood Pressure 112/67 120/53 L Pulse Oximetry 98 96 Intake & Output 11/11/17 11/12/17 11/12/17 18:59 06:59 18:59 Intake Total 960 / 960 240 / 240 Balance 960 / 960 240 / 240 Weight 79.9 kg Intake: Oral 960 / 960 240 / 240 Oral Supplement 0 / 0 Other: # Voids 2 2 Date of Last Bowel Movement 11/09/17 # Bowel Movements 0 Narrative: GENERAL: This is a thin 47-year-old male patient, no acute distress. Sitting in dayroom. Patient witnessed tiptoe walking in the unit with the aid of a walker. SKIN: Warm and dry. No generalized rash. HEENT: Atraumatic. Normocephalic. Pupils equal and round. No scleral icterus. No injection or drainage. No nasal bleeding or discharge. Mucous membranes pink and moist. Tongue atraumatic. NECK: Trachea midline. CARDIOVASCULAR: Regular rate and rhythm. RESPIRATORY: No accessory muscle use. Clear to auscultation. Breath sounds equal bilaterally. GASTROINTESTINAL: Abdomen soft, non-tender, nondistended. +BS x 4 quads. MUSCULOSKELETAL: Extremities without clubbing, cyanosis, or edema. No obvious deformities. NEUROLOGICAL: Awake and alert. Able to move all extremities spontaneously. No focal neurologic finding appreciated. PSYCHIATRIC: Calm and cooperative. Judgment and insight poor. Results - Labs CBC & Chem 7: 11/07/17 09:00 11/11/17 08:20 - Imaging Impressions Thoracic Spine X-Ray 11/11/17 00:00 CONCLUSION: Negative examination. Assessment and Plan - Assessment (1) Psychosis Code(s): F29 - Unspecified psychosis not due to a substance or known physiological condition Status: Acute (2) Tachycardia Code(s): R00.0 - Tachycardia, unspecified Status: Acute (3) Catatonia Code(s): F06.1 - Catatonic disorder due to known physiological condition Status: Resolved (4) Seizure disorder Code(s): G40.909 - Epilepsy, unspecified, not intractable, without status epilepticus Status: Acute - Plan 47 year old [place] male with history of seizures admitted under Kebede Act for agitation and change in mental status. Patient noted to be tachycardic, diaphoretic, and stiff. Catatonia with associated waxy flexibility and stiffness Psychosis Delio acted from [facility] for increased agitation/altered mental status Lengthy discussion with Dr. Johnson, patient with no previous history of schizophrenia or any other psychiatric illness. Catatonia developed after patient suffered a seizure secondary to discontinuing his Tegretol medication at the urging of his girlfriend. -Management per psychiatric team -Continue with PT Seizure disorder, with recent seizure activity secondary to patient discontinuing his Tegretol medication EEG, no seizure activity -seizure precautions -Discussed with Dr. Melton who recommends resuming patient on his regular Tegretol dose 200 mg p.o. 3 times daily and having patient follow up with his own neurologist following discharge 11/10 - asked to see patient as reconsult for 2 episodes of head shaking, witnessed by medical staff, no associated seizure related symptoms. 11/11 Tegretol level 6.4. Repeat EEG pending. No further episodes of head shaking. 11/12 repeat EEG negative, discussed with Dr. Melton who recommended increasing dose of Tegretol by 100mg BID, monitoring level daily and repeat EEG Hyperlipidemia -continue home meds Noted with trouble swallowing Poor po intake -Swallow evaluation completed, per ST recommendations regular diet with thin liquids -Dietitian following for calorie count. Continue Ensure 3 times daily. Left knee and right ankle pain s/p fall No head injury, no loss of consciousness No obvious deformity on examination -Imaging of left knee and right ankle reviewed, no acute fracture noted Thoracic spine pain s/p fall 11/11 patient had second fall, witnessed, did not hit his head. No LOC. -Repeat imaging thoracic spine negative for acute fracture -fall precautions DVT prophylaxis -Patient is ambulatory Discussed Condition With: patient, nursing staff, Dr. Melton
[2017-11-12] MEDS: Nystatin 100,000 UNITS/GM Powder 15 GM Bottle TOPICAL SCH ×3 (12:27→19:45)
--- NOTE | 2017-11-12 13:28 | P.PNPSY ---
Subjective Remarks: Patient seen and examined with nurse. Chart reviewed. Case discussed with nursing staff. Case discussed with counselor. On my examination today, the patient is sleeping soundly versus feigning sleep. He does avoid hitting his face with hand drop test while "sleeping." In any event, he does awaken eventually. He tells me that he is feeling much improved. He denies any SI or HI. Denies any AVH. Personality disorder traits persist. No reported side effects from medications. I discuss planned medication adjustments with patient. No physical complaints. Vital Signs Temp Pulse Resp BP Pulse Ox 11/12/17 05:54 98.5 F 91 H 18 120/53 L 96 11/11/17 17:27 97.2 F L 76 18 112/67 98 Intake and Output 11/12/17 11/12/17 11/12/17 06:59 14:59 22:59 Intake Total 360 / 360 Balance 360 / 360 Intake: Oral 360 / 360 Other: Weight 79.9 kg Impressions Thoracic Spine X-Ray 11/11/17 00:00 CONCLUSION: Negative examination. Labs reviewed. EEG reveals some beta rhythm, probably benzo effect, otherwise normal. Review of Systems All other systems reviewed negative except as stated in HPI Mental Status Examination Appearance: Appropriate Consciousness: Alert Orientation: Person, Place (at least) Motor Activity: Other (No ictal activity noted. No motoric abnormalities noted. ) Speech: Unremarkable Language: Adequate Fund of Knowledge: Inadequate Attention and Concentration: Adequate Memory: Unremarkable (Grossly intact on clinical exam) Mood: Other (Calm) Affect: Blunt Thought Process & Associations: Intact Thought Content: Appropriate Hallucination Type: None Delusion Type: None Suicidal Ideation: No Suicidal Plan: No Suicidal Intention: No Homicidal Ideation: No Homicidal Plan: No Homicidal Intention: No Insight: Fair Judgment: Impulsive Assessment and Plan - Assessment (1) Unspecified psychosis Code(s): F29 - Unspecified psychosis not due to a substance or known physiological condition Status: Acute (2) Major depressive disorder Code(s): F32.9 - Major depressive disorder, single episode, unspecified Status : Acute - Plan Plan: Plan for ongoing taper of scheduled Ativan, slowly given seizure history. We may consider tapering to 1mg q4h tomorrow. Continue other psychotropic medications as ordered. Hospitalist input appreciated. Continue other care as ordered. Justification for Continued Inpatient Stay: Medication changes planned. Risk for decompensation in less restrictive environment. Discharge Planning: Pending psychiatric stabilization. (2) Major depressive disorder Qualifiers: Major depression recurrence: single episode
[2017-11-13] MEDS: LORazepam 1 MG Tablet PO SCH ×5 (02:51→20:10)
[2017-11-13] MEDS: ARIPiprazole 5 MG Tablet PO SCH (08:48)
[2017-11-13] MEDS: Folic Acid 1 MG Tablet PO SCH (08:48)
[2017-11-13] MEDS: Famotidine 20 MG Tablet PO SCH (08:48)
[2017-11-13] MEDS: FLUoxetine 20 MG Capsule PO SCH (08:48)
[2017-11-13] MEDS: carBAMazepine 200 MG Tablet PO SCH ×3 (09:10→20:09)
[2017-11-13] MEDS: Nystatin 100,000 UNITS/GM Powder 15 GM Bottle TOPICAL SCH ×3 (11:59→18:00)
[2017-11-13] MEDS ORDERED: LORazepam 1 MG Tablet PO SCH (13:00)
--- NOTE | 2017-11-13 13:16 | P.PN ---
Subjective Interval history: Follow up on patient with seizures. Patient seen and examined. Patient is tired. States he didn't sleep well last night. Discussed with nursing staff, no acute events overnight. No seizure activity or head shaking. Physical Exam Vital signs: Vital Signs 11/12/17 17:58 11/13/17 05:53 Temperature 98.5 F 98.7 F Pulse Rate 98 H 95 H Respiratory Rate 16 16 Blood Pressure 104/62 122/59 L Pulse Oximetry 99 96 Intake & Output 11/12/17 11/13/17 11/13/17 18:59 06:59 18:59 Intake Total 1440 / 1440 220 / 220 Balance 1440 / 1440 220 / 220 Intake: Oral 1440 / 1440 120 / 120 Oral Supplement 100 / 100 Other: # Voids 1 # Bowel Movements 1 Narrative: GENERAL: This is a thin 47-year-old male patient. Resting comfortably in his bed. Not in any distress. SKIN: Warm and dry. No generalized rash. HEENT: Atraumatic. Normocephalic. Pupils equal and round. No scleral icterus. No injection or drainage. No nasal bleeding or discharge. Mucous membranes pink and moist. Tongue atraumatic. NECK: Trachea midline. CARDIOVASCULAR: Regular rate and rhythm. RESPIRATORY: No accessory muscle use. Clear to auscultation. Breath sounds equal bilaterally. GASTROINTESTINAL: Abdomen soft, non-tender, nondistended. +BS x 4 quads. MUSCULOSKELETAL: Extremities without clubbing, cyanosis, or edema. No obvious deformities. NEUROLOGICAL: Awake and alert. Able to move all extremities spontaneously. No focal neurologic finding appreciated. PSYCHIATRIC: Calm and cooperative. Judgment and insight poor. Results - Labs CBC & Chem 7: 11/07/17 09:00 11/11/17 08:20 Laboratory Results - last 24 hr 11/13/17 07:44 Carbamazepine 7.4 Assessment and Plan - Assessment (1) Psychosis Code(s): F29 - Unspecified psychosis not due to a substance or known physiological condition Status: Acute (2) Tachycardia Code(s): R00.0 - Tachycardia, unspecified Status: Acute (3) Catatonia Code(s): F06.1 - Catatonic disorder due to known physiological condition Status: Resolved (4) Seizure disorder Code(s): G40.909 - Epilepsy, unspecified, not intractable, without status epilepticus Status: Acute - Plan 47 year old [place] male with history of seizures admitted under Delio Act for agitation and change in mental status. Patient noted to be tachycardic, diaphoretic, and stiff. Catatonia with associated waxy flexibility and stiffness Psychosis Delio acted from [facility] for increased agitation/altered mental status Lengthy discussion with Dr. Johnson, patient with no previous history of schizophrenia or any other psychiatric illness. Catatonia developed after patient suffered a seizure secondary to discontinuing his Tegretol medication at the urging of his girlfriend. -Management per psychiatric team -Continue with PT Seizure disorder, with recent seizure activity secondary to patient discontinuing his Tegretol medication EEG, no seizure activity -seizure precautions -Discussed with Dr. Melton who recommends resuming patient on his regular Tegretol dose 200 mg p.o. 3 times daily and having patient follow up with his own neurologist following discharge 11/10 - asked to see patient as reconsult for 2 episodes of head shaking, witnessed by medical staff, no associated seizure related symptoms. 11/11 Tegretol level 6.4. Repeat EEG pending. No further episodes of head shaking. 11/12 repeat EEG negative, discussed with Dr. Melton who recommended increasing dose of Tegretol by 100mg BID, monitoring level daily and repeat EEG 11/13 repeat Tegretol level 7.4. Will repeat level again in am. Hyperlipidemia -continue home meds Noted with trouble swallowing Poor po intake -Swallow evaluation completed, per ST recommendations regular diet with thin liquids -Dietitian following. Continue Ensure TID, milk with all meals. Left knee and right ankle pain s/p fall No head injury, no loss of consciousness No obvious deformity on examination -Imaging of left knee and right ankle reviewed, no acute fracture noted Thoracic spine pain s/p fall 11/11 patient had second fall, witnessed, did not hit his head. No LOC. -Repeat imaging thoracic spine negative for acute fracture -fall precautions DVT prophylaxis -Patient is ambulatory Discussed Condition With: patient, nursing staff, Dr. Donovan
--- NOTE | 2017-11-13 14:05 | P.TTN ---
- Patient Problems Problems: 1. Discharge planning 2. Medication compliance 3. Knowledge deficit 4. Lack of coping skills - Progress Toward Goals Provider Present: Dr. Elma Palma Provider Input: Needs further stabilization, appears excessivly dependent on others, tapering ativan Psychiatric Counselors Present: Other Psychiatric Therapist Input: Aleksandra- Patient has been focused on discharge, has no insight. Has placment when stable with family. Group Spec/RT/OT/GUTIERREZ Present: BRENDA Mendiola Group Spec/RT/OT/GUTIERREZ Input: attends select groups with encouragment - Documentation Teaching Recipient: Patient
--- NOTE | 2017-11-13 17:08 | P.PNPSY ---
Subjective Remarks: Patient seen and examined. Chart reviewed. Case discussed with nursing staff. Case discussed in treatment team. On my examination today, the patient seems more alert and less sedated. He does complain of somewhat poor sleep overnight. He denies SI or HI. He is somewhat faultfinding. He does display some dependent traits in addition to cluster B traits. At one point he tells me , "I need more attention." No side effects from medications besides some mild tiredness. No physical complaints. Vital Signs Temp Pulse Resp BP Pulse Ox 11/13/17 05:53 98.7 F 95 H 16 122/59 L 96 11/12/17 17:58 98.5 F 98 H 16 104/62 99 Intake and Output 11/13/17 11/13/17 11/13/17 06:59 14:59 22:59 Other: # Voids 1 Laboratory Results - last 12 hr 11/13/17 07:44 Carbamazepine 7.4 Labs reviewed. Review of Systems All other systems reviewed negative except as stated in HPI Mental Status Examination Appearance: Appropriate Consciousness: Alert Orientation: Person, Place (at least) Motor Activity: Other (No motor abnormalities noted. No ictal activity noted.) Speech: Unremarkable Language: Adequate Fund of Knowledge: Inadequate Attention and Concentration: Adequate Memory: Unremarkable (Grossly intact on clinical exam) Mood: Other (Calm) Affect: Blunt Thought Process & Associations: Intact Thought Content: Appropriate Hallucination Type: None Delusion Type: None Suicidal Ideation: No Homicidal Ideation: No Insight: Fair Judgment: Impulsive Assessment and Plan - Assessment (1) Unspecified psychosis Code(s): F29 - Unspecified psychosis not due to a substance or known physiological condition Status: Acute (2) Major depressive disorder Code(s): F32.9 - Major depressive disorder, single episode, unspecified Status : Acute - Plan Plan: No ongoing signs of catatonia. No signs of benzodiazepine withdrawal. Taper scheduled Ativan to 1 mg every 4 hours. So long is the patient is not experiencing any withdrawal and there has been no evidence of seizure, taper Ativan to 0.5 mg every 4 hours on Thursday. Hospitalist input noted and appreciated. Transfer to 2600 unit for increased socialization. Continue other medications and care as ordered. Justification for Continued Inpatient Stay: Medication changes. Risk for decompensation in less restrictive environment. Discharge Planning: Pending psychiatric stabilization. Possible discharge next week. (2) Major depressive disorder Qualifiers: Major depression recurrence: single episode
--- NOTE | 2017-11-13 17:43 | MG ---
cc: Mackenzie Condon MD, David B MD ELECTROENCEPHALOGRAM NUMBER: [id number] REFERRING PHYSICIAN: Jone Palma MD CLINICAL HISTORY: In room 2501. He stopped hyperventilation 2 minutes into the study, 2 minutes 22 seconds, due to could not finish, but it was a good effort. Awake. MRI showed no acute findings. Last EEG was done 11/11/2017, but there is no report written out by the voice intercept technician, so I have no way of looking at that. History of seizures, schizophrenia. MEDICATIONS: 1. Tegretol. 2. Abilify. 3. Vitamins. 4. Namenda. DESCRIPTION OF RECORD: The patient has a background alpha of overall 8 Hz, 20-40 microvolts. Photic stimulation does elicit a posterior driving response. Overall, symmetrical background. Some movement. No epileptic activity. IMPRESSION: Overall, normal-appearing electroencephalogram without any epileptiform features. Clinical correlation. MD BURAK Romeo/jadyn , 04:54 PM , 05:01 PM
[2017-11-14] MEDS: LORazepam 1 MG Tablet PO SCH ×6 (01:14→20:35)
[2017-11-14] MEDS: Famotidine 20 MG Tablet PO SCH (10:10)
[2017-11-14] MEDS: FLUoxetine 20 MG Capsule PO SCH (10:10)
[2017-11-14] MEDS: Folic Acid 1 MG Tablet PO SCH (10:10)
[2017-11-14] MEDS: carBAMazepine 200 MG Tablet PO SCH ×3 (10:11→20:36)
[2017-11-14] MEDS: ARIPiprazole 5 MG Tablet PO SCH (10:11)
[2017-11-14] MEDS: Nystatin 100,000 UNITS/GM Powder 15 GM Bottle TOPICAL SCH ×3 (10:11→17:25)
--- NOTE | 2017-11-14 18:49 | P.PNPSY ---
Subjective Remarks: Reviewed electronic medical records and discussed case with staff. Follow-up was conducted in the hallway with RAIZA Haynes present. Patient reports that he feels "very nervous". He states that he "did not sleep too good". He does admit that he has a good appetite. Overall, he seems very somatic. Mental Status Examination Appearance: Appropriate Consciousness: Alert Orientation: Person, Place (at least) Motor Activity: Other (No motor abnormalities noted. No ictal activity noted.) Speech: Unremarkable Language: Adequate Fund of Knowledge: Inadequate Attention and Concentration: Adequate Memory: Unremarkable (Grossly intact on clinical exam) Mood: Other (Calm) Affect: Blunt Thought Process & Associations: Intact Thought Content: Appropriate Hallucination Type: None Delusion Type: None Suicidal Ideation: No Suicidal Plan: No Suicidal Intention: No Homicidal Ideation: No Homicidal Plan: No Homicidal Intention: No Insight: Fair Judgment: Impulsive Assessment and Plan - Assessment (1) Psychosis Code(s): F29 - Unspecified psychosis not due to a substance or known physiological condition Status: Acute - Plan Plan: Patient will be reevaluated Thursday by the attending psychiatrist. Continue with current treatment plan. Justification for Continued Inpatient Stay: Moving this patient to a less restrictive environment would likely result in decompensation.
[2017-11-15] MEDS: LORazepam 1 MG Tablet PO SCH ×2 (04:30)
--- NOTE | 2017-11-15 08:39 | P.PNPSY ---
Subjective Chief Complaint: Psychosis Remarks: Reviewed electronic medical records and discussed with staff. Follow-up with RAIZA Chu in day room. Patient is eating breakfast. He states that he wants to shave, take a shower and is looking forward to returning home with his parents in [place]. States that he takes Melatonin at home and has had some difficulty sleeping due to his anxiety. Medication compliant. Review of Systems All other systems reviewed negative except as stated in HPI Constitutional: Reports fatigue Mental Status Examination Appearance: Appropriate Consciousness: Alert Orientation: Person, Place (at least) Motor Activity: Other (No motor abnormalities noted. No ictal activity noted.) Speech: Unremarkable Language: Adequate Fund of Knowledge: Inadequate Attention and Concentration: Adequate Memory: Unremarkable (Grossly intact on clinical exam) Mood: Other (Calm) Affect: Blunt Thought Process & Associations: Intact Thought Content: Appropriate Hallucination Type: None Delusion Type: None Suicidal Ideation: No Suicidal Plan: No Suicidal Intention: No Homicidal Ideation: No Homicidal Plan: No Homicidal Intention: No Insight: Fair Judgment: Impulsive Assessment and Plan - Assessment (1) Psychosis Code(s): F29 - Unspecified psychosis not due to a substance or known physiological condition Status: Acute - Plan Plan: Patient will be reevaluated Thursday by the attending psychiatrist. Continue with current treatment plan. Justification for Continued Inpatient Stay: Moving patient to a less restrictive environment may result in his decompensation.
[2017-11-15] MEDS ORDERED: LORazepam 0.5 MG Tablet PO PRN (09:24)
[2017-11-15] MEDS: ARIPiprazole 5 MG Tablet PO SCH (09:29)
[2017-11-15] MEDS: Nystatin 100,000 UNITS/GM Powder 15 GM Bottle TOPICAL SCH ×3 (09:30→17:24)
[2017-11-15] MEDS: Folic Acid 1 MG Tablet PO SCH (09:30)
[2017-11-15] MEDS: FLUoxetine 20 MG Capsule PO SCH (09:30)
[2017-11-15] MEDS: Famotidine 20 MG Tablet PO SCH (09:30)
[2017-11-15] MEDS: carBAMazepine 200 MG Tablet PO SCH ×3 (09:30→20:49)
--- NOTE | 2017-11-15 14:43 | P.PN ---
Subjective Interval history: Follow-up visit seizures. Patient seen and examined today. Reports he is doing okay. As per nursing no seizures were noted since patient was admitted to the unit. Compliant with medications. No new complaints. Physical Exam Vital signs: Vital Signs 11/14/17 18:00 11/15/17 06:42 Temperature 98 F 98.5 F Pulse Rate 89 83 Respiratory Rate 18 16 Blood Pressure 120/60 109/56 L Pulse Oximetry 96 96 Intake & Output 11/14/17 11/15/17 11/15/17 18:59 06:59 18:59 Intake Total 360 / 360 360 / 360 Balance 360 / 360 360 / 360 Intake: Oral 360 / 360 360 / 360 Other: Date of Last Bowel Movement 11/09/17 11/09/17 11/09/17 Narrative: GENERAL: This is a well-nourished, well-developed patient, in no apparent distress. SKIN: Warm and dry. HEENT: Normocephalic. Pupils equal round and reactive. Nose without bleeding. Airway patent. NECK: Trachea midline. CARDIOVASCULAR: Regular rate and rhythm without murmurs, gallops, or rubs. RESPIRATORY: Clear to auscultation. Breath sounds equal bilaterally. No wheezes , rales, or rhonchi. GASTROINTESTINAL: Abdomen soft, non-tender, nondistended. Bowel Sounds normoactive x4. MUSCULOSKELETAL: Extremities without clubbing, cyanosis, or edema. NEUROLOGICAL: Awake and alert. Moves all extremities. Normal speech. 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 Patient noted to be tachycardic, diaphoretic, and stiff. Catatonia with associated waxy flexibility and stiffness Psychosis Delio acted from [facility] for increased agitation/altered mental status Catatonia developed after patient suffered a seizure secondary to discontinuing his Tegretol medication at the urging of his girlfriend. -Management per psychiatric team -Continue with PT -Improving Seizure disorder, with recent seizure activity secondary to patient discontinuing his Tegretol medication EEG, no seizure activity -seizure precautions -Dr. Melton who recommends resuming patient on his regular Tegretol dose 200 mg p.o. 3 times daily and having patient follow up with his own neurologist following discharge 11/10 - reconsult for 2 episodes of head shaking, witnessed by medical staff, no associated seizure related symptoms. 11/11 Tegretol level 6.4. No further episodes of head shaking. 11/12 repeat EEG negative, Dr. Melton recommended increasing dose of Tegretol by 300mg BID, monitoring level daily and repeat EEG -Tegretol level 7.4 -->7.6 -->7.4 -No seizure activity reported Hyperlipidemia -continue home meds Poor po intake -Swallow evaluation completed, per ST recommendations regular diet with thin liquids -Dietitian following. Continue Ensure TID, milk with all meals. Left knee and right ankle pain s/p fall No head injury, no loss of consciousness No obvious deformity on examination -Imaging of left knee and right ankle reviewed, no acute fracture noted Thoracic spine pain s/p fall 11/11 patient had second fall, witnessed, did not hit his head. No LOC. -Repeat imaging thoracic spine negative for acute fracture -fall precautions DVT prophylaxis -Patient is ambulatory Stable from Hospitalist standpoint. We will sign off. Reconsult as needed. Code Status: Full Code Discussed Condition With: Patient, nursing Discharge Planning: DC disposition by primary team
[2017-11-15] MEDS: LORazepam 0.5 MG Tablet PO SCH (20:48)
[2017-11-16] MEDS: LORazepam 0.5 MG Tablet PO SCH ×6 (04:46→22:04)
[2017-11-16] MEDS: Folic Acid 1 MG Tablet PO SCH (09:14)
[2017-11-16] MEDS: ARIPiprazole 5 MG Tablet PO SCH (09:14)
[2017-11-16] MEDS: FLUoxetine 20 MG Capsule PO SCH (09:15)
[2017-11-16] MEDS: Nystatin 100,000 UNITS/GM Powder 15 GM Bottle TOPICAL SCH ×3 (09:15→17:03)
[2017-11-16] MEDS: Famotidine 20 MG Tablet PO SCH ×2 (09:15→20:41)
[2017-11-16] MEDS: carBAMazepine 200 MG Tablet PO SCH ×3 (09:21→20:41)
--- NOTE | 2017-11-16 13:50 | P.PNPSY ---
Subjective Chief Complaint: Psychosis Remarks: Patient seen and examined with nurse. Chart reviewed. Case discussed with nursing staff. On my examination today, the patient complains of somewhat poor sleep. Complains of reflux symptoms while laying supine. Denies any SI or HI. Denies any AVH. No side effects from medications. No acute physical complaints. Vital Signs Temp Pulse Resp BP Pulse Ox 11/16/17 05:47 98.1 F 72 16 115/57 L 99 11/15/17 18:00 98 F 94 H 16 107/50 L 98 Intake and Output 11/15/17 11/16/17 11/16/17 22:59 06:59 14:59 Intake Total 580 / 580 Balance 580 / 580 Intake: Oral 480 / 480 Oral Supplement 100 / 100 Other: # Voids 2 1 Date of Last Bowel Movement 11/09/17 # Bowel Movements 1 Weight 82 kg Labs reviewed. No new labs. Review of Systems All other systems reviewed negative except as stated in HPI Mental Status Examination Appearance: Appropriate Consciousness: Alert Orientation: Person, Place (at least) Motor Activity: Other (No signs of withdrawal noted. No motor abnormalities noted. No ictal activity noted.) Speech: Unremarkable Language: Adequate Fund of Knowledge: Inadequate Attention and Concentration: Adequate Memory: Unremarkable (Grossly intact on clinical exam) Mood: Other (Remains calm) Affect: Blunt Thought Process & Associations: Intact Thought Content: Appropriate Hallucination Type: None Delusion Type: None Suicidal Ideation: No Suicidal Plan: No Suicidal Intention: No Homicidal Ideation: No Homicidal Plan: No Homicidal Intention: No Mental Status Exam Remarks: Insight and judgment are perhaps fair. Assessment and Plan - Assessment (1) Unspecified psychosis Code(s): F29 - Unspecified psychosis not due to a substance or known physiological condition Status: Acute (2) Major depressive disorder Code(s): F32.9 - Major depressive disorder, single episode, unspecified Status : Acute - Plan Plan: Add melatonin for sleep. Titrate Pepcid 20 mg twice daily to target reflux symptoms. Plan to discontinue remainder of scheduled oral Ativan tomorrow so long as the patient is not experiencing withdrawal symptoms. Continue to monitor on the inpatient unit. Continue other medications and care as ordered. Patient has improved to the point that I believe it is appropriate at this juncture to have the patient sign voluntary and consent for medications. Justification for Continued Inpatient Stay: Medication changes. Risk for decompensation in less restrictive environment. Discharge Planning: Possible discharge later in the week. Request Healthcare Surrogate/Guardian Advocate?: No (2) Major depressive disorder Qualifiers: Major depression recurrence: single episode
--- NOTE | 2017-11-16 14:34 | P.DIET ---
Nutritional Evaluation Type of nutrition evaluation: follow-up Nutrition consult regarding: Diet Evaluation ([facility] [place] for Calorie Counting) Objective - Diagnosis Psychosis - Objective % IBW: 98 (FEU=404#) Body Weight Used for Calculations: Actual (80kg) Energy Needs - Lower Range (kCal/kg): 25 Energy Needs - Upper Range (kCal/kg): 30 Lower Limit kCal/kg (kCals): 2,000 Upper Limit kCal/kg (kCals): 2,400 Lower Limit Protein Factor (Grams per Kg): 1.0 Upper Limit Protein Factor (Grams per Kg): 1.2 Lower Protein Needs (Protein): 80 Upper Protein Needs (Protein): 96 Fluid Factor (ml/kg): 30 Estimated Fluid Needs (ml): 2,400 Dietitian Reviewed in Medical Record: Current diet, Curent medications, Intake & Output, Labs Diet Order: Regular Oral Diet Intake Amount: Fair 50-75% Objective Comments: Meds: Vitamin B12, Folic Acid, Thiamine LBM 11/15 Feeding - Current PO Supplement Current Supplement: Ensure Enlive Current Frequency of Supplement: Three times a day Current kCals Provided by Supplement: 350 Current Protein Provided by Supplement: 20 Assessment Assessment: Pt continues w/ somewhat sporadic PO intake. Reviewed results of previous calorie count. It seems like he was able to consume 66% of his lower end kcal needs and 58% of his lower protein needs on 1 day. But he seems to eat <50% of his nutritional requirements on most days. Enlive TID continues to be appropriate for increasing calorie/protein intake. He does state that his appetite is good. Will continue to monitor pt's PO intake in hopes that it will improve. For now, recommend continuing current POC. RD will continue to follow. Recommendations: 1. Continue current POC for now, Enlive TID and milk TID. 2. Will continue to monitor for improvements w/ PO intake and make adjustments appropriately. Dietitian to Monitor: Lab values, Supplement acceptance, Intake & Output, Diet tolerance, Weight change, PO Intake, Medical course
[2017-11-16] MEDS: Senna/Docusate Sodium 8.6/50 MG Tablet PO PRN (20:42)
[2017-11-16] MEDS ORDERED: Melatonin 5 MG Tablet PO PRN (21:00)
[2017-11-17] MEDS: LORazepam 0.5 MG Tablet PO SCH ×4 (00:18→12:57)
--- NOTE | 2017-11-17 09:20 | P.TTN ---
- Patient Problems Problems: 1. Discharge planning 2. Medication compliance 3. Knowledge deficit 4. Lack of coping skills - Progress Toward Goals Provider Present: Dr. Elma Palma Provider Input: Continue to taper ativan, status change to voluntary , anticipated discharge at the end of the week Psychiatric Counselors Present: Other Psychiatric Therapist Input: Aleksandra-Patient contiues to be focused on discharge Group Spec/RT/OT/GUTIERREZ Present: Roger Chaney OT, BRENDA Wolfe Group Spec/RT/OT/GUTIERREZ Input: attends select groups, may benefit from PT - Documentation Teaching Recipient: Patient
[2017-11-17] MEDS: carBAMazepine 200 MG Tablet PO SCH ×3 (09:28→20:42)
[2017-11-17] MEDS: FLUoxetine 20 MG Capsule PO SCH (09:30)
[2017-11-17] MEDS: ARIPiprazole 5 MG Tablet PO SCH (09:30)
[2017-11-17] MEDS: Folic Acid 1 MG Tablet PO SCH (09:30)
[2017-11-17] MEDS: Nystatin 100,000 UNITS/GM Powder 15 GM Bottle TOPICAL SCH ×3 (09:31→17:07)
[2017-11-17] MEDS: Famotidine 20 MG Tablet PO SCH ×2 (09:31→20:43)
--- NOTE | 2017-11-17 13:26 | P.PNPSY ---
Subjective Chief Complaint: Psychosis Remarks: Patient seen and examined. Chart reviewed. Patient did sign voluntary. Case discussed with nursing staff. Case discussed in treatment team. Counselor instructed to firm up post-discharge plan as patient is approaching readiness for discharge. On my exam, patient reports that he slept much better overnight. Mood is "much better." He tells me that he went outside for fresh air earlier today. He denies SI/HI. Denies AVH. Denies side effects from medications. We discussed plan to discontinue Ativan today. No physical complaints. Vital Signs Temp Pulse Resp BP Pulse Ox 11/17/17 06:39 98.5 F 72 14 113/51 L 100 11/16/17 18:34 98.9 F 100 H 18 110/54 L 96 Intake and Output 11/17/17 11/17/17 11/17/17 06:59 14:59 22:59 Other: Date of Last Bowel Movement 11/16/17 Labs reviewed. No new labs. Review of Systems All other systems reviewed negative except as stated in HPI Mental Status Examination Appearance: Appropriate Consciousness: Alert Orientation: Person, Place Motor Activity: Other (No motor abnormalities noted. No signs of any withdrawal noted. No ictal activity noted.) Speech: Unremarkable Language: Adequate Fund of Knowledge: Inadequate Attention and Concentration: Adequate Memory: Unremarkable (Grossly intact on clinical exam) Mood: Other (Improved Per patient report) Affect: Blunt (Somewhat more reactive today) Thought Process & Associations: Intact Thought Content: Appropriate Hallucination Type: None Delusion Type: None Suicidal Ideation: No Suicidal Plan: No Suicidal Intention: No Homicidal Ideation: No Homicidal Plan: No Homicidal Intention: No Mental Status Exam Remarks: Insight and judgment are fair. Assessment and Plan - Assessment (1) Unspecified psychosis Code(s): F29 - Unspecified psychosis not due to a substance or known physiological condition Status: Acute (2) Major depressive disorder Code(s): F32.9 - Major depressive disorder, single episode, unspecified Status : Acute - Plan Plan: Patient continues to improve with medication adjustments. Discontinue remainder of scheduled Ativan; no signs of any catatonia or withdrawal. Continue to monitor on the inpatient unit. Continue other care as ordered. Justification for Continued Inpatient Stay: Medication changes. Discharge Planning: Anticipate discharge next 1-3 days. Request Healthcare Surrogate/Guardian Advocate?: No (2) Major depressive disorder Qualifiers: Major depression recurrence: single episode
[2017-11-17] MEDS: Senna/Docusate Sodium 8.6/50 MG Tablet PO PRN (20:42)
[2017-11-18] MEDS: ARIPiprazole 5 MG Tablet PO SCH (08:58)
[2017-11-18] MEDS: Nystatin 100,000 UNITS/GM Powder 15 GM Bottle TOPICAL SCH ×2 (08:59→17:25)
[2017-11-18] MEDS: FLUoxetine 20 MG Capsule PO SCH (08:59)
[2017-11-18] MEDS: Famotidine 20 MG Tablet PO SCH ×2 (08:59→20:50)
[2017-11-18] MEDS: Folic Acid 1 MG Tablet PO SCH (08:59)
--- NOTE | 2017-11-18 11:50 | P.PNPSY ---
Subjective Chief Complaint: Psychosis Remarks: Patient seen and examined with nurse. Chart reviewed. Case discussed with nursing staff who reports patient has been somewhat demanding and histrionic but no real behavioral problem. Nurse also brings to my attention that patient' s mother for some reason was trying to take pictures with her cell phone camera through the glass on the unit door at visitation last night. Nurse apprises me that a few minutes prior to my evaluation the patient began to complain of chest pain. Vital signs are normal. I have ordered a stat EKG and a set of stat cardiac enzymes and also requested hospitalist consultation. On my examination today, the patient is lying comfortably in bed. He does not appear to be in any great physical distress although he does complain of some mild shortness of breath. He does not appear particularly dyspneic. He denies any SI or HI. Denies any AVH. Denies any side effects from medications. No physical complaints. Vital Signs Temp Pulse Resp BP Pulse Ox 11/18/17 05:40 98.4 F 72 16 112/59 L 11/17/17 17:35 98 F 82 16 110/53 L 98 Intake and Output 11/17/17 11/18/17 11/18/17 22:59 06:59 14:59 Intake Total 1540 / 1540 360 / 360 Balance 1540 / 1540 360 / 360 Intake: Oral 1440 / 1440 360 / 360 Oral Supplement 100 / 100 Other: # Voids 2 2 Date of Last Bowel Movement 11/17/17 # Bowel Movements 0 Labs reviewed. No new labs. Review of Systems All other systems reviewed negative except as stated in HPI Mental Status Examination Appearance: Appropriate Consciousness: Alert Orientation: Person, Place Motor Activity: Other (No motor abnormalities noted. No ictal activity noted. No signs of withdrawal noted.) Speech: Unremarkable Language: Adequate Fund of Knowledge: Inadequate Attention and Concentration: Adequate Memory: Unremarkable (Grossly intact on clinical exam) Mood: Appropriate Affect: Blunt (Mild) Thought Process & Associations: Intact Thought Content: Appropriate Hallucination Type: None Delusion Type: None Suicidal Ideation: No Suicidal Plan: No Suicidal Intention: No Homicidal Ideation: No Homicidal Plan: No Homicidal Intention: No Mental Status Exam Remarks: Insight and judgment are perhaps fair. Assessment and Plan - Assessment (1) Unspecified psychosis Code(s): F29 - Unspecified psychosis not due to a substance or known physiological condition Status: Acute (2) Major depressive disorder Code(s): F32.9 - Major depressive disorder, single episode, unspecified Status : Acute - Plan Plan: Follow-up EKG, cardiac enzymes and hospitalist consultation [Update: EKG NSR, CE negative, hospitalist suspects costochondritis]. So long as the patient can be medically cleared, he does seem psychiatrically stable and we might consider discharge tomorrow. Case discussed briefly with counselor. Continue other medications and care as ordered. Justification for Continued Inpatient Stay: Possible complicating condition Discharge Planning: Possible discharge tomorrow, . Request Healthcare Surrogate/Guardian Advocate?: No (2) Major depressive disorder Qualifiers: Major depression recurrence: single episode
[2017-11-18 13:15] LABS: Creatine Kinase 30 U/L (39-308)
[2017-11-18 13:35] LABS: Baso % (Auto) 0.5 % (0.0-2.0); Eos # (Auto) 0.1 th/mm3 (0.0-0.4); Eos % (Auto) 1.1 % (0.0-4.0); Hematocrit 39.2 % (39.0-51.0); Hemoglobin 13.7 gm/dL (13.0-17.0); Lymph # (Auto) 1.5 th/mm3 (1.0-4.8); Lymph % (Auto) 17.8 % (9.0-44.0); Mean Corpuscular HGB Conc 34.9 % (32.0-36.0); Mean Corpuscular Hemoglobin 32.6 pg (27.0-34.0); Mean Corpuscular Volume 93.5 fL (80.0-100.0); Mean Platelet Volume 7.4 fL (7.0-11.0); Mono # (Auto) 0.5 th/mm3 (0.0-0.9); Mono % (Auto) 6.4 % (0.0-8.0); Neut # (Auto) 6.2 th/mm3 (1.8-7.7); Neut % (Auto) 74.2 % (16.0-70.0); Platelet Count 299 th/mm3 (150-450); Red Blood Count 4.19 mil/mm3 (4.50-5.90); Red Cell Distribution Width 13.4 % (11.6-17.2); White Blood Count 8.4 th/mm3 (4.0-11.0)
[2017-11-18 13:55] LABS: Albumin 3.4 g/dL (3.4-5.0); Anion Gap 9 meq/L (5-15); Aspartate Aminotransferase 9 U/L (15-37); Blood Urea Nitrogen 7 mg/dL (7-18); Calcium 8.8 mg/dL (8.5-10.1); Carbon Dioxide 27.2 meq/L (21.0-32.0); Chloride 103 meq/L (98-107); Glomerular Filtration Rate Greater Than 89 mL/min (>89); Glucose,Random 111 mg/dL (74-106); Potassium 3.8 meq/L (3.5-5.1); Sodium 139 meq/L (136-145)
[2017-11-18 13:57] LABS: Alanine Aminotransferase 18 U/L (12-78)
[2017-11-18 13:58] LABS: Alkaline Phosphatase 77 U/L (45-117)
--- NOTE | 2017-11-18 14:02 | XR ---
EXAM DATE: 11/18/2017 1:52 PM EDT AGE/SEX: 47 years / Male INDICATIONS: Shortness of breath. CLINICAL DATA: This is the patient's subsequent encounter. Patient reports that signs and symptoms h ave been present for 3 weeks and indicates a pain score of 0/10. MEDICAL/SURGICAL HISTORY: . Epilepsy. None. COMPARISON: [facility] [place], CHEST 1V SINGLE AP, 11/07/2017. . FINDINGS: A single AP view of the chest demonstrates the lungs to be symmetrically aerated without evidence of mass, infiltrate or effusion. The cardiomediastinal contours are unremarkable. Osseous structures a re intact. CONCLUSION: No acute cardiopulmonary findings. Electronically signed by: Jules Burciaga MD 11/18/2017 2:00 PM EDT
--- NOTE | 2017-11-18 14:53 | P.PN ---
Subjective Interval history: Reconsulted for chest pain. Patient seen and examined today. Reports chest pain especially when pressing on his chest. Denies trauma. Pain is achy, does not know what alleviates pain but states worse when touched. Denies SOB/ dyspnea. Denies chest pain, palpitations, headaches, dizziness. Denies fevers, chills, n/v/d. Denies dysuria. Physical Exam Vital signs: Vital Signs 11/17/17 17:35 11/18/17 05:40 Temperature 98 F 98.4 F Pulse Rate 82 72 Respiratory Rate 16 16 Blood Pressure 110/53 L 112/59 L Pulse Oximetry 98 Intake & Output 11/17/17 11/18/17 11/18/17 18:59 06:59 18:59 Intake Total 1200 / 1200 340 / 340 360 / 360 Balance 1200 / 1200 340 / 340 360 / 360 Intake: Oral 1200 / 1200 240 / 240 360 / 360 Oral Supplement 100 / 100 Other: # Voids 3 2 Date of Last Bowel Movement 11/16/17 11/17/17 # Bowel Movements 0 Narrative: GENERAL: This is a well-nourished, well-developed patient, in no apparent distress. SKIN: Warm and dry. HEENT: Normocephalic. Pupils equal round and reactive. Nose without bleeding. Airway patent. NECK: Trachea midline. CARDIOVASCULAR: Regular rate and rhythm without murmurs, gallops, or rubs. Tenderness to palpate left chest RESPIRATORY: Clear to auscultation. Breath sounds equal bilaterally. No wheezes , rales, or rhonchi. GASTROINTESTINAL: Abdomen soft, non-tender, nondistended. Bowel Sounds normoactive x4. MUSCULOSKELETAL: Extremities without clubbing, cyanosis, or edema. NEUROLOGICAL: Awake and alert. Moves all extremities. Normal speech. Results - Labs CBC & Chem 7: 11/18/17 13:20 11/18/17 13:11 Laboratory Results - last 24 hr 11/18/17 11/18/17 11/18/17 12:14 13:11 13:20 WBC 8.4 RBC 4.19 L Hgb 13.7 Hct 39.2 MCV 93.5 MCH 32.6 MCHC 34.9 RDW 13.4 Plt Count 299 MPV 7.4 Neut % (Auto) 74.2 H Lymph % (Auto) 17.8 [place] % (Auto) 6.4 Eos % (Auto) 1.1 Baso % (Auto) 0.5 Neut # (Auto) 6.2 Lymph # (Auto) 1.5 [place] # (Auto) 0.5 Eos # (Auto) 0.1 Baso # (Auto) 0.0 WBC Differential . Differential Comment Auto diff final Sodium 139 Potassium 3.8 Chloride 103 Carbon Dioxide 27.2 Anion Gap 9 BUN 7 Creatinine 0.58 L Estimated GFR Greater than 89 Random Glucose 111 H Calcium 8.8 Total Bilirubin 0.2 AST 9 L ALT 18 Alkaline Phosphatase 77 Total Creatine Kinase 30 L Troponin I Less than 0.02 L Total Protein 7.0 Albumin 3.4 - Imaging Impressions Chest X-Ray 11/18/17 00:00 CONCLUSION: No acute cardiopulmonary findings. Assessment and Plan - Assessment (1) Psychosis Code(s): F29 - Unspecified psychosis not due to a substance or known physiological condition Status: Acute (2) Tachycardia Code(s): R00.0 - Tachycardia, unspecified Status: Acute (3) Catatonia Code(s): F06.1 - Catatonic disorder due to known physiological condition Status: Resolved (4) Seizure disorder Code(s): G40.909 - Epilepsy, unspecified, not intractable, without status epilepticus Status: Acute - Plan 47 year old [place] male with history of seizures admitted under [place] [employer] for agitation and change in mental status. Patient noted to be tachycardic, diaphoretic, and stiff. Chest pain -Appears to be costochondritis. Tenderness to palpate -Pain medication, Tylenol -EKG reviewed no acute changes compared to previous -Labs unremarkable -CXR no acute cardiopulmonary -Patient is possibly somatic Catatonia with associated waxy flexibility and stiffness Psychosis Delio acted from [facility] for increased agitation/altered mental status Catatonia developed after patient suffered a seizure secondary to discontinuing his Tegretol medication at the urging of his girlfriend. -Management per psychiatric team -Continue with PT -Improving Seizure disorder, with recent seizure activity secondary to patient discontinuing his Tegretol medication EEG, no seizure activity -seizure precautions -Dr. Melton who recommends resuming patient on his regular Tegretol dose 200 mg p.o. 3 times daily and having patient follow up with his own neurologist following discharge 11/10 - reconsult for 2 episodes of head shaking, witnessed by medical staff, no associated seizure related symptoms. 11/11 Tegretol level 6.4. No further episodes of head shaking. 11/12 repeat EEG negative, Dr. Melton recommended increasing dose of Tegretol by 300mg BID, monitoring level daily and repeat EEG -Tegretol level 7.4 -->7.6 -->7.4 -No seizure activity reported Hyperlipidemia -continue home meds Poor po intake -Swallow evaluation completed, per ST recommendations regular diet with thin liquids -Dietitian following. Continue Ensure TID, milk with all meals. Left knee and right ankle pain s/p fall No head injury, no loss of consciousness No obvious deformity on examination -Imaging of left knee and right ankle reviewed, no acute fracture noted Thoracic spine pain s/p fall 11/11 patient had second fall, witnessed, did not hit his head. No LOC. -Repeat imaging thoracic spine negative for acute fracture -fall precautions DVT prophylaxis -Patient is ambulatory Thank you for reconsult. Stable from Hospitalist standpoint. We will sign off. Reconsult as needed. Thank you. Code Status: Full Code Discussed Condition With: Patient, nursing Discharge Planning: DC disposition by primary team
[2017-11-18] MEDS: carBAMazepine 200 MG Tablet PO SCH ×4 (17:24→22:26)
[2017-11-19] MEDS: Folic Acid 1 MG Tablet PO SCH (09:45)
[2017-11-19] MEDS: FLUoxetine 20 MG Capsule PO SCH (09:46)
[2017-11-19] MEDS: Famotidine 20 MG Tablet PO SCH ×2 (09:46→20:27)
[2017-11-19] MEDS: carBAMazepine 200 MG Tablet PO SCH ×3 (10:05→20:26)
[2017-11-19] MEDS: Nystatin 100,000 UNITS/GM Powder 15 GM Bottle TOPICAL SCH ×3 (10:08→17:22)
[2017-11-19] MEDS: ARIPiprazole 5 MG Tablet PO SCH (10:11)
--- NOTE | 2017-11-19 12:39 | P.DSPSY ---
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 in [place] on the [place] act due to changes in behavior, increased agitation and altered mental status. Most of the information my assessment is based in the revision of the discharge summary from [facility]. Apparently, the patient was recently discharged from a psychiatric hospitalization in the [facility] and his medication were changed. There is no mention of medications and discharge summary. 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 Patient is also very sweaty. He was noted to be walking before in [facility]. Has not been interacting with staff, no answering questions, quite isolated. No agitation or aggressive behavior reported. The only questions of the patient responded to me was that he was from [place], he prefers Greek, he does not know where he is, he is disoriented in time and place. Denies suicidal enemas ideation, denies visual and auditory hallucinations. PPHx Schizophrenia, multiple admissions, apparently he was just discharged from a lengthy hospitalization in a psychiatric hospital in the [facility], he denies suicidal attempts, with no psychotropic regimen. PPHx: No medical history Family psychiatric history: No at the moment Substance Hx: The patient denies, and he is negative and initial U tox Social Hx: The patient was born in [place], he lives in the [place] area, single , employed, Tobacco Use In Past 30 Days: No How Often Do You Have a Drink Containing Alcohol: Never Hospital Course: Patient was admitted to a locked, inpatient psychiatric unit. A general medical and neurological consultation were obtained. Appropriate precautions were in place throughout patient's hospital stay. Patient was seen and examined on the unit by psychiatry and also visited by counselor. Psychotropic medications were adjusted. Patient was started on high dose benzodiazepine for management of catatonia, which was subsequently weaned and discontinued after resolution of catatonia. Patient tolerated medication changes well without side effects. There was no evidence of any suicidality or homicidality on the inpatient unit. Patient's self-care improved with treatment of psychiatric illness. Patient does display a histrionic personality style, perhaps with some negativistic or borderline features and is fairly attention seeking. Patient was also felt to use somatic complaints as an attention-seeking gambit at times. On the day of discharge: Patient seen and examined. Chart reviewed. Case discussed with nursing staff. I was notified this morning after patient lowered himself to the floor after being asked by nurse to return to his room. It was felt by the night nurse that the patient was trying to simulate a fall and was not aware that he was being observed when he lowered himself to the ground. This is felt to represent acting out in the setting of his dysfunctional personality style. On my examination today, the patient feels ready to leave the hospital. He denies any suicidal or homicidal ideation, intent or plan. I can elicit no depressive or hypomanic/manic symptoms. He denies any audiovisual hallucinations. I can elicit no delusional material. No evidence of catatonia. Dysfunctional personality style remains. He denies side effects from medications. No physical complaints. With the patient's permission I did endeavor twice to reach out to patient's cousin, Mp, to discuss plan for discharge and left voicemails requesting call back. Suicide and violence risk assessment on day of discharge both suggest lower imminent risk from mental illness and the patient's level of function is adequate for outpatient care. Patient has no acute risk factors: No suicidal or homicidal ideation, no depressive symptoms, no impairment in reality construction, no substance intoxication. Patient's personality style likely confers some degree of chronic risk, but this risk would not be ameliorated by a longer inpatient psychiatric hospital stay. Patient has maximized benefit from this inpatient psychiatric hospital stay. He will be discharged home today with referral for home PT. he has to abide by seizure precautions on discharge. Patient is to follow up with primary care and with neurology. Patient to return to psychiatric emergency room for any concerning symptoms as part of a general safety plan. - Discharge Discharge Date: 11/19/17 - Discharge Diagnosis (1) Psychosis Diagnosis: Principal (resolved) Code(s): F29 - Unspecified psychosis not due to a substance or known physiological condition Status: Resolved (2) Mixed personality disorder Diagnosis: Secondary Code(s): F60.89 - Other specific personality disorders Status: Suspected Discharge Disposition: Home - Discharge Instructions Discharge Diet: Regular Diet Activities You Can Perform: Weight Bearing As Tolerat Activities to Avoid: Bathing, Driving Additional Activity Instructions: Seizure precautions - Discharge Time > 30 minutes Mental Status Examination Appearance: Appropriate Consciousness: Alert Orientation: x4 Motor Activity: Other (No abnormal motor movements noted. No ictal activity noted. No withdrawal signs noted.) Speech: Unremarkable Language: Adequate Fund of Knowledge: Inadequate (Fair) Attention and Concentration: Adequate Memory: Unremarkable (Grossly intact on clinical exam) Mood: Appropriate Affect: Appropriate (Somewhat blunted) Thought Process & Associations: Intact, Logical, Linear Thought Content: Appropriate Hallucination Type: None Delusion Type: None Suicidal Ideation: No Suicidal Plan: No Suicidal Intention: No Homicidal Ideation: No Homicidal Plan: No Homicidal Intention: No Mental Status Exam Remarks: Insight and judgment are perhaps fair Discharge/Advance Care Plan - Results Vital Signs: Last Vital Signs Temp 98 F 11/19/17 05:44 Pulse 87 11/19/17 06:08 Resp 18 11/19/17 05:44 BP 140/78 11/19/17 06:08 Pulse Ox 100 11/19/17 05:44 Lab Results: Abnormal Lab Results 11/18/17 11/18/17 11/18/17 12:14 13:11 13:20 WBC 8.4 RBC 4.19 L Hgb 13.7 Hct 39.2 MCV 93.5 MCH 32.6 MCHC 34.9 RDW 13.4 Plt Count 299 MPV 7.4 Neut % (Auto) 74.2 H Lymph % (Auto) 17.8 [place] % (Auto) 6.4 Eos % (Auto) 1.1 Baso % (Auto) 0.5 Neut # (Auto) 6.2 Lymph # (Auto) 1.5 [place] # (Auto) 0.5 Eos # (Auto) 0.1 Baso # (Auto) 0.0 WBC Differential . Differential Comment Auto diff final Sodium 139 Potassium 3.8 Chloride 103 Carbon Dioxide 27.2 Anion Gap 9 BUN 7 Creatinine 0.58 L Estimated GFR Greater than 89 Random Glucose 111 H Calcium 8.8 Total Bilirubin 0.2 AST 9 L ALT 18 Alkaline Phosphatase 77 Total Creatine Kinase 30 L Troponin I Less than 0.02 L Total Protein 7.0 Albumin 3.4 Laboratory Results Hemoglobin A1c 4.8 % (4.3-6.0) 10/31/17 09:49 Triglycerides 102 mg/dL (42-150) 10/31/17 09:49 Cholesterol 156 mg/dL (120-200) 10/31/17 09:49 LDL Cholesterol, Calc 85 mg/dL (0-99) 10/31/17 09:49 HDL Cholesterol 50.3 mg/dL (40.0-60.0) 10/31/17 09:49 TSH 1.150 uIU/mL (0.358-3.740) 11/06/17 11:07 Free T4 1.09 ng/dL (0.76-1.46) 11/06/17 11:07 Free T3 2.92 pg/mL (2.18-3.98) 11/06/17 11:07 Summary of Procedures: EEG 11/01 - Normal EEG 11/11 - Some beta rhythm, possibly medication effect, otherwise normal EEG 11/13 - Normal Imaging: ITS Impressions Head MRI 11/01/17 00:00 CONCLUSION: 1. Motion degraded exam. 2. No definitive acute abnormality. Specifically, no evidence for acute infarction or hemorrhage. Ankle X-Ray 11/05/17 00:00 CONCLUSION: Unremarkable exam. Knee X-Ray 11/05/17 00:00 CONCLUSION: Unremarkable exam. Shoulder X-Ray 11/08/17 18:55 CONCLUSION: Unremarkable study. Hip X-Ray 11/08/17 18:56 CONCLUSION: Unremarkable study. Face X-Ray 11/08/17 18:57 CONCLUSION: No acute fractures are demonstrated. Thoracic Spine X-Ray 11/11/17 00:00 CONCLUSION: Negative examination. Chest X-Ray 11/18/17 00:00 CONCLUSION: No acute cardiopulmonary findings. Pending Results: None - Medications Number of antipsychotic medications at discharge: 1 - Discharge Care Plan Goals to Promote Your Health: * To prevent worsening of your condition and complications * To maintain your health at the optimal level Directions to Meet Your Goals: Take your medications as prescribed Follow your dietary instruction Follow activity as directed Keep your appointments as scheduled Take your immunizations and boosters as scheduled If your symptoms worsen call your PCP, if no PCP go to Urgent Care Center or Emergency Room For 29/09 questions related to your inpatient stay or results of tests pending at discharge, please contact Dr. Jone Palma MD at Smoking is Dangerous to Your Health. Avoid second hand smoking
--- NOTE | 2017-11-19 13:31 | P.DCO ---
- Diagnosis (2) Major depressive disorder - Physical Therapy Order: Evaluate and treat - Certification I have seen patient Rusty Haynes on 11/19/17. My clinical findings support the need for the requested home health care services because: Need for psychosocial assistance I certify that my clinical findings support that this patient is homebound because: Need for psychosocial assistance (2) Major depressive disorder Qualifiers: Major depression recurrence: single episode
[2017-11-19 17:45] VITALS: RESP 17
--- NOTE | 2017-11-19 19:09 | ECG ---
Date Performed: 11/18/2017 Time Performed: 12:27:59 PTAGE: 47 years EKG: Sinus rhythm NORMAL ECG PREVIOUS TRACING : 11/07/2017 14.04 Since the previous tracing, no significant change noted DOCTOR: Roberto Sandhu Interpretating Date/Time 11/19/2017 19:06:15
[2017-11-20 05:56] VITALS: BP 118/57; PULSE 98; TEMP 98.6; O2SAT 96
[2017-11-20] MEDS: FLUoxetine 20 MG Capsule PO SCH (08:09)
[2017-11-20] MEDS: carBAMazepine 200 MG Tablet PO SCH ×2 (08:09)
[2017-11-20] MEDS: Famotidine 20 MG Tablet PO SCH (08:10)
[2017-11-20] MEDS: ARIPiprazole 5 MG Tablet PO SCH (08:10)
[2017-11-20] MEDS: Nystatin 100,000 UNITS/GM Powder 15 GM Bottle TOPICAL SCH (08:10)
[2017-11-20] MEDS: Folic Acid 1 MG Tablet PO SCH (08:10)
== END 2017-11-20 10:44 | disposition home health service (06) ==
LOC: H270 19:03 → H250 11-02 12:20 → H260 11-13 20:31 → H250 11-13 23:27
PROVIDERS: ADMIT Psychiatry & Neurology Psychiatry; ATTEND Psychiatry & Neurology Psychiatry